=== PATIENT | male | born 1930 | race Caucasian/White ===

== ENCOUNTER 2018-04-04 23:37 | Inpatient (IN) ==
--- NOTE | 2018-04-05 00:04 | ED ---
HPI General Chief complaint: Neuro Symptoms/Deficit Stated complaint: Weakness Time Seen by Provider: 04/04/18 23:53 Source: patient and family Mode of arrival: EMS Limitations: no limitations History of Present Illness HPI narrative: 87-year-old male was brought to the emergency room by EMS as slurred speech. As per the ur coordinator the called 911 and told them that patient has been acting this way since approximately 8 PM. Patient says that he is having difficulty speaking. He is answering questions appropriately and is alert and oriented x3. His speech is comprehensible 75% extent. Baseline was unknown initially when I was examining him and talking to him. The time of onset was unclear as well. A stroke alert was called by me. The arrived 30 minutes after patient's arrival in the ER and upon speaking with her she clarified that she had noticed the symptoms slowly progressing from 6 PM onwards. This morning patient was noticed to have a rash in his groin area that was painful. It was more prominent on the right groin than the left and patient was having some difficulty walking because of the pain. When the speech progressively worsened that is when she called 911. Patient has history of Parkinson's. The also mentioned that she had noticed some drooling around his mouth. Currently patient does not have any droop. Onset (ago): hour(s) Related Data Home Medications Medication Instructions Recorded Confirmed buspirone 15 mg PO BID 04/05/18 04/05/18 carbidopa-levodopa 15 mg PO TID 04/05/18 04/05/18 carbidopa-levodopa 200 mg PO HS 04/05/18 04/05/18 metoprolol tartrate 25 mg PO DAILY 04/05/18 04/05/18 tramadol 50 mg PO Q4-6H PRN 04/05/18 04/05/18 trazodone 50 mg PO HS 04/05/18 04/05/18 Allergies Allergy/AdvReac Type Severity Reaction Status Date / Time No Known Allergies Allergy Verified 04/04/18 23:53 Review of Systems ROS: all other systems reviewed are negative Musculoskeletal Reports myalgias Integumentary/Breasts Reports rash PMFSH History History Provided By: Patient and Family Member () Medical History Medical History Hypertension (Acute) Pacemaker (Acute) Parkinson disease (Acute) Social History Social History Substance History: No History of Abuse Second Hand Smoke Exposure: No Smoking Status: Never smoker How Often Do You Have a Drink Containing Alcohol: Never Recent Travel in [facility] within the Last 8 Weeks: No Recent Out of Country Travel within the Last 8 Weeks: No Exam Narrative Exam Narrative: GENERAL: Awake, alert, elderly, mild to moderate distress SKIN: Focused skin assessment warm/dry. Erythematous, intertriginous rash on the groin area right worse than the left. It is wet in appearance and foul- smelling HEAD: Atraumatic. Normocephalic. EYES: Pupils equal and round. No scleral icterus. No injection or drainage. ENT: No nasal bleeding or discharge. Mucous membranes pink and moist. NECK: Trachea midline. No JVD. CARDIOVASCULAR: Regular rate and rhythm. No murmur appreciated. RESPIRATORY: No accessory muscle use. Clear to auscultation. Breath sounds equal bilaterally. GASTROINTESTINAL: Abdomen soft, non-tender, nondistended. Hepatic and splenic margins not palpable. MUSCULOSKELETAL: No obvious deformities. No clubbing. No cyanosis. No edema. NEUROLOGICAL: Awake and alert. No obvious cranial nerve deficits. Motor grossly within normal limits. Dysarthric speech. Patient is able to flex his right knee but unable to flex his hip due to pre-existing hip pain. Sensations intact bilaterally. NIH stroke score of 1 PSYCHIATRIC: Appropriate mood and affect; insight and judgment normal. Course Initial Documented Vital Signs Temperature 98.6 F 04/04/18 23:48 Pulse Rate 73 04/04/18 23:48 Respiratory Rate 16 04/04/18 23:48 Blood Pressure 139/67 04/04/18 23:48 Pulse Oximetry 97 04/04/18 23:48 Last Documented Vital Signs Temperature 98.7 F 04/08/18 08:00 Pulse Rate 79 04/08/18 08:00 Respiratory Rate 16 04/08/18 08:00 Blood Pressure 131/78 04/08/18 08:00 Pulse Oximetry 94 L 04/08/18 08:58 NIH Stroke Scale NIH Stroke Scale Level of Consciousness: 0-Alert Orientation Questions: 0-Answers both correct Responds to Commands: 0-Both tasks correct Gaze Eye Movement: 0-Horizontal movement WNL Visual Luis: 0-No visual field defect Facial Movement: 0-Normal Motor Functions Arm LEFT: 0-No drift Motor Functions Arm RIGHT: 0-No drift Motor Functions Leg LEFT: 0-No drift Motor Functions Leg RIGHT: 0-No drift Limb Ataxia: 0-No ataxia Sensory Loss: 0-No sensory loss Best Language: 0-Normal Articulation: 1-Mild dysarthia Extinction or Inattention Sensory: 0-Absent Total: 1 Medical Decision Making MDM Narrative Medical decision making narrative: 1:16 AM case was discussed with Dr. Mena soon after the stroke alert was called. Given the uncertainty of the timing at that point and minimal dysarthria the decision was made to withhold TPA. Test results are back and appeared to be within acceptable limit currently. CT of the neck is pending official read. Patient will require admission. I will give him a dose of aspirin full-strength. Awaiting for the hospitalist to call back. Medical Screen Exam Complete: Yes Emergency Medical Condition: Yes Lab Data Result diagrams: 04/05/18 00:15 04/08/18 06:49 Lab Results 04/05/18 04/05/18 04/05/18 Range/Units 00:10 00:15 00:15 WBC 8.5 (4.0-11.0) th/mm3 RBC 4.36 L (4.50-5.90) mil/mm3 Hgb 14.1 (13.0-17.0) gm/dL POC Hgb (Calc) 13.6 (13.0-17.0) g/dL Hct 42.2 (39.0-51.0) % POC Hct 40.0 (39-51.0) % MCV 96.9 (80.0-100.0) fL MCH 32.3 (27.0-34.0) pg MCHC 33.4 (32.0-36.0) % RDW 13.8 (11.6-17.2) % Plt Count 155 (150-450) th/mm3 MPV 9.1 (7.0-11.0) fL Neut % (Auto) 72.7 H (16.0-70.0) % Lymph % (Auto) 16.6 (9.0-44.0) % [place] % (Auto) 8.2 H (0.0-8.0) % Eos % (Auto) 1.8 (0.0-4.0) % Baso % (Auto) 0.7 (0.0-2.0) % Neut # (Auto) 6.2 (1.8-7.7) th/mm3 Lymph # (Auto) 1.4 (1.0-4.8) th/mm3 [place] # (Auto) 0.7 (0.0-0.9) th/mm3 Eos # (Auto) 0.2 (0.0-0.4) th/mm3 Baso # (Auto) 0.1 (0.0-0.2) th/mm3 WBC Differential . Differential Comment Auto diff final ESR (0-20) mm/hr PT (9.8-11.6) sec INR Ratio Fibrinogen (227-377) mg/dL POC Sodium 143 (137-144) mmol/L Sodium (136-145) meq/L POC Potassium 4.2 (3.6-5.0) mmol/L Potassium (3.5-5.1) meq/L POC Chloride 104 (102-111) mmol/L Chloride (98-107) meq/L Carbon Dioxide (21.0-32.0) meq/L Anion Gap (5-15) meq/L POC BUN 18 (5-21) mg/dL BUN (7-18) mg/dL Creatinine (0.60-1.30) mg/dL POC Creatinine 1.4 H (0.6-1.3) mg/dL Estimated GFR (>89) mL/min POC Glucose 106 (68-110) mg/dL Random Glucose (74-106) mg/dL Hemoglobin A1c (4.3-6.0) % Calcium (8.5-10.1) mg/dL Total Creatine Kinase (39-308) U/L Troponin I (0.02-0.05) ng/mL Triglycerides (42-150) mg/dL Cholesterol (120-200) mg/dL LDL Cholesterol, Calc (0-99) mg/dL HDL Cholesterol (40.0-60.0) mg/dL Cholesterol/HDL Ratio Ratio Vitamin B12 (193-986) pg/mL TSH (0.358-3.740) uIU/mL Free T4 (0.76-1.46) ng/dL Urine Color (Yellw/Straw) Urine Clarity (Clear) Urine pH (5.0-8.5) Ur Specific [place] (1.002-1.035) Urine Protein (Neg-Trace) mg/dL Urine Glucose (UA) (Negative) mg/dL Urine Ketones (Negative) mg/dL Urine Occult Blood (Negative) Urine Nitrate (Negative) Urine Bilirubin (Negative) Urine Urobilinogen (Less than 2) mg/dL Ur Leukocyte Esterase (Negative) Urine RBC (0-3) /hpf Urine WBC (0-5) /hpf Hyaline Casts (0-3) /lpf Urine Mucus (Occasional) /lpf Micro UA Comment Ur Microscopic Review Urine Culture Comments Urine Opiates Screen (Neg) Ur Barbiturates Screen (Neg) Phenytoin (10.0-20.0) mcg/mL Ur Amphetamines Screen (Neg) U Benzodiazepines Scrn (Neg) Urine Cocaine Screen (Neg) U Cannabinoids Screen (Neg) ZOË Screen (Neg) RPR (Nonreactive) Blood Type O Positive Blood Type Recheck Required Antibody Screen Negative 04/05/18 04/05/18 04/05/18 Range/Units 00:15 00:50 00:50 WBC (4.0-11.0) th/mm3 RBC (4.50-5.90) mil/mm3 Hgb (13.0-17.0) gm/dL POC Hgb (Calc) (13.0-17.0) g/dL Hct (39.0-51.0) % POC Hct (39-51.0) % MCV (80.0-100.0) fL MCH (27.0-34.0) pg MCHC (32.0-36.0) % RDW (11.6-17.2) % Plt Count (150-450) th/mm3 MPV (7.0-11.0) fL Neut % (Auto) (16.0-70.0) % Lymph % (Auto) (9.0-44.0) % [place] % (Auto) (0.0-8.0) % Eos % (Auto) (0.0-4.0) % Baso % (Auto) (0.0-2.0) % Neut # (Auto) (1.8-7.7) th/mm3 Lymph # (Auto) (1.0-4.8) th/mm3 [place] # (Auto) (0.0-0.9) th/mm3 Eos # (Auto) (0.0-0.4) th/mm3 Baso # (Auto) (0.0-0.2) th/mm3 WBC Differential Differential Comment ESR (0-20) mm/hr PT 10.6 (9.8-11.6) sec INR 1.0 Ratio Fibrinogen 346 (227-377) mg/dL POC Sodium (137-144) mmol/L Sodium (136-145) meq/L POC Potassium (3.6-5.0) mmol/L Potassium (3.5-5.1) meq/L POC Chloride (102-111) mmol/L Chloride (98-107) meq/L Carbon Dioxide (21.0-32.0) meq/L Anion Gap (5-15) meq/L POC BUN (5-21) mg/dL BUN (7-18) mg/dL Creatinine (0.60-1.30) mg/dL POC Creatinine (0.6-1.3) mg/dL Estimated GFR (>89) mL/min POC Glucose (68-110) mg/dL Random Glucose (74-106) mg/dL Hemoglobin A1c (4.3-6.0) % Calcium (8.5-10.1) mg/dL Total Creatine Kinase (39-308) U/L Troponin I (0.02-0.05) ng/mL Triglycerides (42-150) mg/dL Cholesterol (120-200) mg/dL LDL Cholesterol, Calc (0-99) mg/dL HDL Cholesterol (40.0-60.0) mg/dL Cholesterol/HDL Ratio Ratio Vitamin B12 (193-986) pg/mL TSH (0.358-3.740) uIU/mL Free T4 (0.76-1.46) ng/dL Urine Color Yellow (Yellw/Straw) Urine Clarity Clear (Clear) Urine pH 5.0 (5.0-8.5) Ur Specific [place] 1.029 (1.002-1.035) Urine Protein Negative (Neg-Trace) mg/dL Urine Glucose (UA) Negative (Negative) mg/dL Urine Ketones Trace H (Negative) mg/dL Urine Occult Blood Negative (Negative) Urine Nitrate Negative (Negative) Urine Bilirubin Negative (Negative) Urine Urobilinogen 4 or greater (Less than 2) mg/dL Ur Leukocyte Esterase Negative (Negative) Urine RBC 3 (0-3) /hpf Urine WBC 2 (0-5) /hpf Hyaline Casts 1 (0-3) /lpf Urine Mucus Moderate H (Occasional) /lpf Micro UA Comment Cath-culture not ind Ur Microscopic Review Not Reportable Urine Culture Comments Cath-cult not ind Urine Opiates Screen Neg (Neg) Ur Barbiturates Screen Neg (Neg) Phenytoin (10.0-20.0) mcg/mL Ur Amphetamines Screen Neg (Neg) U Benzodiazepines Scrn Neg (Neg) Urine Cocaine Screen Neg (Neg) U Cannabinoids Screen Neg (Neg) ZOË Screen (Neg) RPR (Nonreactive) Blood Type Blood Type Recheck Antibody Screen 04/05/18 04/05/18 04/05/18 Range/Units 11:42 11:42 11:42 WBC (4.0-11.0) th/mm3 RBC (4.50-5.90) mil/mm3 Hgb (13.0-17.0) gm/dL POC Hgb (Calc) (13.0-17.0) g/dL Hct (39.0-51.0) % POC Hct (39-51.0) % MCV (80.0-100.0) fL MCH (27.0-34.0) pg MCHC (32.0-36.0) % RDW (11.6-17.2) % Plt Count (150-450) th/mm3 MPV (7.0-11.0) fL Neut % (Auto) (16.0-70.0) % Lymph % (Auto) (9.0-44.0) % [place] % (Auto) (0.0-8.0) % Eos % (Auto) (0.0-4.0) % Baso % (Auto) (0.0-2.0) % Neut # (Auto) (1.8-7.7) th/mm3 Lymph # (Auto) (1.0-4.8) th/mm3 [place] # (Auto) (0.0-0.9) th/mm3 Eos # (Auto) (0.0-0.4) th/mm3 Baso # (Auto) (0.0-0.2) th/mm3 WBC Differential Differential Comment ESR 17 (0-20) mm/hr PT (9.8-11.6) sec INR Ratio Fibrinogen (227-377) mg/dL POC Sodium (137-144) mmol/L Sodium (136-145) meq/L POC Potassium (3.6-5.0) mmol/L Potassium (3.5-5.1) meq/L POC Chloride (102-111) mmol/L Chloride (98-107) meq/L Carbon Dioxide (21.0-32.0) meq/L Anion Gap (5-15) meq/L POC BUN (5-21) mg/dL BUN (7-18) mg/dL Creatinine (0.60-1.30) mg/dL POC Creatinine (0.6-1.3) mg/dL Estimated GFR (>89) mL/min POC Glucose (68-110) mg/dL Random Glucose (74-106) mg/dL Hemoglobin A1c (4.3-6.0) % Calcium (8.5-10.1) mg/dL Total Creatine Kinase (39-308) U/L Troponin I (0.02-0.05) ng/mL Triglycerides (42-150) mg/dL Cholesterol (120-200) mg/dL LDL Cholesterol, Calc (0-99) mg/dL HDL Cholesterol (40.0-60.0) mg/dL Cholesterol/HDL Ratio Ratio Vitamin B12 193 (193-986) pg/mL TSH 1.280 (0.358-3.740) uIU/mL Free T4 1.31 (0.76-1.46) ng/dL Urine Color (Yellw/Straw) Urine Clarity (Clear) Urine pH (5.0-8.5) Ur Specific [place] (1.002-1.035) Urine Protein (Neg-Trace) mg/dL Urine Glucose (UA) (Negative) mg/dL Urine Ketones (Negative) mg/dL Urine Occult Blood (Negative) Urine Nitrate (Negative) Urine Bilirubin (Negative) Urine Urobilinogen (Less than 2) mg/dL Ur Leukocyte Esterase (Negative) Urine RBC (0-3) /hpf Urine WBC (0-5) /hpf Hyaline Casts (0-3) /lpf Urine Mucus (Occasional) /lpf Micro UA Comment Ur Microscopic Review Urine Culture Comments Urine Opiates Screen (Neg) Ur Barbiturates Screen (Neg) Phenytoin (10.0-20.0) mcg/mL Ur Amphetamines Screen (Neg) U Benzodiazepines Scrn (Neg) Urine Cocaine Screen (Neg) U Cannabinoids Screen (Neg) ZOË Screen Neg (Neg) RPR Nonreactive (Nonreactive) Blood Type Blood Type Recheck Antibody Screen 04/05/18 04/05/18 04/06/18 Range/Units 17:29 20:58 07:09 WBC (4.0-11.0) th/mm3 RBC (4.50-5.90) mil/mm3 Hgb (13.0-17.0) gm/dL POC Hgb (Calc) (13.0-17.0) g/dL Hct (39.0-51.0) % POC Hct (39-51.0) % MCV (80.0-100.0) fL MCH (27.0-34.0) pg MCHC (32.0-36.0) % RDW (11.6-17.2) % Plt Count (150-450) th/mm3 MPV (7.0-11.0) fL Neut % (Auto) (16.0-70.0) % Lymph % (Auto) (9.0-44.0) % [place] % (Auto) (0.0-8.0) % Eos % (Auto) (0.0-4.0) % Baso % (Auto) (0.0-2.0) % Neut # (Auto) (1.8-7.7) th/mm3 Lymph # (Auto) (1.0-4.8) th/mm3 [place] # (Auto) (0.0-0.9) th/mm3 Eos # (Auto) (0.0-0.4) th/mm3 Baso # (Auto) (0.0-0.2) th/mm3 WBC Differential Differential Comment ESR (0-20) mm/hr PT (9.8-11.6) sec INR Ratio Fibrinogen (227-377) mg/dL POC Sodium (137-144) mmol/L Sodium (136-145) meq/L POC Potassium (3.6-5.0) mmol/L Potassium (3.5-5.1) meq/L POC Chloride (102-111) mmol/L Chloride (98-107) meq/L Carbon Dioxide (21.0-32.0) meq/L Anion Gap (5-15) meq/L POC BUN (5-21) mg/dL BUN (7-18) mg/dL Creatinine (0.60-1.30) mg/dL POC Creatinine (0.6-1.3) mg/dL Estimated GFR (>89) mL/min POC Glucose 114 H 95 (68-110) mg/dL Random Glucose (74-106) mg/dL Hemoglobin A1c 5.6 (4.3-6.0) % Calcium (8.5-10.1) mg/dL Total Creatine Kinase (39-308) U/L Troponin I (0.02-0.05) ng/mL Triglycerides (42-150) mg/dL Cholesterol (120-200) mg/dL LDL Cholesterol, Calc (0-99) mg/dL HDL Cholesterol (40.0-60.0) mg/dL Cholesterol/HDL Ratio Ratio Vitamin B12 (193-986) pg/mL TSH (0.358-3.740) uIU/mL Free T4 (0.76-1.46) ng/dL Urine Color (Yellw/Straw) Urine Clarity (Clear) Urine pH (5.0-8.5) Ur Specific [place] (1.002-1.035) Urine Protein (Neg-Trace) mg/dL Urine Glucose (UA) (Negative) mg/dL Urine Ketones (Negative) mg/dL Urine Occult Blood (Negative) Urine Nitrate (Negative) Urine Bilirubin (Negative) Urine Urobilinogen (Less than 2) mg/dL Ur Leukocyte Esterase (Negative) Urine RBC (0-3) /hpf Urine WBC (0-5) /hpf Hyaline Casts (0-3) /lpf Urine Mucus (Occasional) /lpf Micro UA Comment Ur Microscopic Review Urine Culture Comments Urine Opiates Screen (Neg) Ur Barbiturates Screen (Neg) Phenytoin (10.0-20.0) mcg/mL Ur Amphetamines Screen (Neg) U Benzodiazepines Scrn (Neg) Urine Cocaine Screen (Neg) U Cannabinoids Screen (Neg) ZOË Screen (Neg) RPR (Nonreactive) Blood Type Blood Type Recheck Antibody Screen 04/06/18 04/06/18 04/06/18 Range/Units 07:09 08:18 12:37 WBC (4.0-11.0) th/mm3 RBC (4.50-5.90) mil/mm3 Hgb (13.0-17.0) gm/dL POC Hgb (Calc) (13.0-17.0) g/dL Hct (39.0-51.0) % POC Hct (39-51.0) % MCV (80.0-100.0) fL MCH (27.0-34.0) pg MCHC (32.0-36.0) % RDW (11.6-17.2) % Plt Count (150-450) th/mm3 MPV (7.0-11.0) fL Neut % (Auto) (16.0-70.0) % Lymph % (Auto) (9.0-44.0) % [place] % (Auto) (0.0-8.0) % Eos % (Auto) (0.0-4.0) % Baso % (Auto) (0.0-2.0) % Neut # (Auto) (1.8-7.7) th/mm3 Lymph # (Auto) (1.0-4.8) th/mm3 [place] # (Auto) (0.0-0.9) th/mm3 Eos # (Auto) (0.0-0.4) th/mm3 Baso # (Auto) (0.0-0.2) th/mm3 WBC Differential Differential Comment ESR (0-20) mm/hr PT (9.8-11.6) sec INR Ratio Fibrinogen (227-377) mg/dL POC Sodium (137-144) mmol/L Sodium (136-145) meq/L POC Potassium (3.6-5.0) mmol/L Potassium (3.5-5.1) meq/L POC Chloride (102-111) mmol/L Chloride (98-107) meq/L Carbon Dioxide (21.0-32.0) meq/L Anion Gap (5-15) meq/L POC BUN (5-21) mg/dL BUN (7-18) mg/dL Creatinine (0.60-1.30) mg/dL POC Creatinine (0.6-1.3) mg/dL Estimated GFR (>89) mL/min POC Glucose 88 104 (68-110) mg/dL Random Glucose (74-106) mg/dL Hemoglobin A1c (4.3-6.0) % Calcium (8.5-10.1) mg/dL Total Creatine Kinase 91 (39-308) U/L Troponin I (0.02-0.05) ng/mL Triglycerides 89 (42-150) mg/dL Cholesterol 96 L (120-200) mg/dL LDL Cholesterol, Calc 48 (0-99) mg/dL HDL Cholesterol 29.9 L (40.0-60.0) mg/dL Cholesterol/HDL Ratio 3.21 Ratio Vitamin B12 (193-986) pg/mL TSH (0.358-3.740) uIU/mL Free T4 (0.76-1.46) ng/dL Urine Color (Yellw/Straw) Urine Clarity (Clear) Urine pH (5.0-8.5) Ur Specific [place] (1.002-1.035) Urine Protein (Neg-Trace) mg/dL Urine Glucose (UA) (Negative) mg/dL Urine Ketones (Negative) mg/dL Urine Occult Blood (Negative) Urine Nitrate (Negative) Urine Bilirubin (Negative) Urine Urobilinogen (Less than 2) mg/dL Ur Leukocyte Esterase (Negative) Urine RBC (0-3) /hpf Urine WBC (0-5) /hpf Hyaline Casts (0-3) /lpf Urine Mucus (Occasional) /lpf Micro UA Comment Ur Microscopic Review Urine Culture Comments Urine Opiates Screen (Neg) Ur Barbiturates Screen (Neg) Phenytoin Less than 0.4 L (10.0-20.0) mcg/mL Ur Amphetamines Screen (Neg) U Benzodiazepines Scrn (Neg) Urine Cocaine Screen (Neg) U Cannabinoids Screen (Neg) ZOË Screen (Neg) RPR (Nonreactive) Blood Type Blood Type Recheck Antibody Screen 04/06/18 04/08/18 Range/Units 21:05 06:49 WBC (4.0-11.0) th/mm3 RBC (4.50-5.90) mil/mm3 Hgb (13.0-17.0) gm/dL POC Hgb (Calc) (13.0-17.0) g/dL Hct (39.0-51.0) % POC Hct (39-51.0) % MCV (80.0-100.0) fL MCH (27.0-34.0) pg MCHC (32.0-36.0) % RDW (11.6-17.2) % Plt Count (150-450) th/mm3 MPV (7.0-11.0) fL Neut % (Auto) (16.0-70.0) % Lymph % (Auto) (9.0-44.0) % [place] % (Auto) (0.0-8.0) % Eos % (Auto) (0.0-4.0) % Baso % (Auto) (0.0-2.0) % Neut # (Auto) (1.8-7.7) th/mm3 Lymph # (Auto) (1.0-4.8) th/mm3 [place] # (Auto) (0.0-0.9) th/mm3 Eos # (Auto) (0.0-0.4) th/mm3 Baso # (Auto) (0.0-0.2) th/mm3 WBC Differential Differential Comment ESR (0-20) mm/hr PT (9.8-11.6) sec INR Ratio Fibrinogen (227-377) mg/dL POC Sodium (137-144) mmol/L Sodium 142 (136-145) meq/L POC Potassium (3.6-5.0) mmol/L Potassium 4.0 (3.5-5.1) meq/L POC Chloride (102-111) mmol/L Chloride 107 (98-107) meq/L Carbon Dioxide 26.6 (21.0-32.0) meq/L Anion Gap 8 (5-15) meq/L POC BUN (5-21) mg/dL BUN 16 (7-18) mg/dL Creatinine 1.45 H (0.60-1.30) mg/dL POC Creatinine (0.6-1.3) mg/dL Estimated GFR 46 L (>89) mL/min POC Glucose (68-110) mg/dL Random Glucose 107 H (74-106) mg/dL Hemoglobin A1c (4.3-6.0) % Calcium 8.5 (8.5-10.1) mg/dL Total Creatine Kinase (39-308) U/L Troponin I Less than 0.02 L (0.02-0.05) ng/mL Triglycerides (42-150) mg/dL Cholesterol (120-200) mg/dL LDL Cholesterol, Calc (0-99) mg/dL HDL Cholesterol (40.0-60.0) mg/dL Cholesterol/HDL Ratio Ratio Vitamin B12 (193-986) pg/mL TSH (0.358-3.740) uIU/mL Free T4 (0.76-1.46) ng/dL Urine Color (Yellw/Straw) Urine Clarity (Clear) Urine pH (5.0-8.5) Ur Specific [place] (1.002-1.035) Urine Protein (Neg-Trace) mg/dL Urine Glucose (UA) (Negative) mg/dL Urine Ketones (Negative) mg/dL Urine Occult Blood (Negative) Urine Nitrate (Negative) Urine Bilirubin (Negative) Urine Urobilinogen (Less than 2) mg/dL Ur Leukocyte Esterase (Negative) Urine RBC (0-3) /hpf Urine WBC (0-5) /hpf Hyaline Casts (0-3) /lpf Urine Mucus (Occasional) /lpf Micro UA Comment Ur Microscopic Review Urine Culture Comments Urine Opiates Screen (Neg) Ur Barbiturates Screen (Neg) Phenytoin (10.0-20.0) mcg/mL Ur Amphetamines Screen (Neg) U Benzodiazepines Scrn (Neg) Urine Cocaine Screen (Neg) U Cannabinoids Screen (Neg) ZOË Screen (Neg) RPR (Nonreactive) Blood Type Blood Type Recheck Antibody Screen Imaging Data Radiologist's impression: Chest X-Ray 04/05/18 00:06 CONCLUSION: Interstitial prominence right upper lung and left lower lung may represent developing infiltrate. Head CT 04/05/18 00:06 CONCLUSION: 1. No acute findings in the brain. 2. Moderate severity atrophy. The report was called to Dr. Samuel at 12:29 AM. Head CTA 04/05/18 00:06 CONCLUSION: 1. Negative exam. No evidence of vessel truncation. Neck CTA 04/05/18 00:06 CONCLUSION: 1. Negative exam. No significant stenosis seen. CT CAD 04/05/18 00:15 CONCLUSION: Physiological brain perfusion parameters with RAPID analysis as above. The decision for consideration of therapy is multi factorial and multi disciplinary relying on subjective and objective clinical data. This data is not construed or intended to be the sole determinant of treatment eligibility. Hip X-Ray 04/06/18 00:00 CONCLUSION: Right hip arthroplasty. No fracture or complication ECG Data Attestation: I personally reviewed and interpreted this ECG as follows: Interpretation: Twelve-lead EKG was reviewed by me. Paced rhythm. Heart rate of 73 bpm per Discharge Plan Discharge Disposition Patient Disposition: 30 Still Patient Physicians Team ED Provider: Jayne Samuel Attending Provider: Yi Grace Other Providers: Jonah Mena ; Festus Munoz ; Chica Hurt ; [employer], [employer] Status ED Status: Left Department Discharge Information Discharge Date/Time: 04/05/18 04:51
--- NOTE | 2018-04-05 00:33 | CT ---
EXAM DATE: 04/05/2018 12:24 AM EDT AGE/SEX: 87 years / Male INDICATIONS: Stroke alert; slurred speech. CLINICAL DATA: This is the patient's initial encounter. Patient reports that signs and symptoms have been present for 1 day and indicates a pain score of Nonresponsive. MEDICAL/SURGICAL HISTORY: Hypertension. Parkinson's disease. Pacemaker. RADIATION DOSE: 52.13 CTDI (mGy) COMPARISON: No prior exams available for comparison. TECHNIQUE: CT of the head without contrast. Using automated exposure control and adjustment of the mA and/or kV according to patient size, radiation dose was kept as low as reasonably achievable to ob tain optimal diagnostic quality images. DICOM format image data is available electronically for revi ew and comparison. FINDINGS: Cerebrum: The ventricles, sulci, and basal cisterns are prominent and there is diffuse decreased att enuation in the supratentorial white matter characteristic of diffuse ischemic change. Physiologic ca lcification in the basal ganglia.. No evidence of midline shift, mass lesion, hemorrhage or acute in farction. No extraaxial fluid collections are seen. Posterior Fossa: The cerebellum and brainstem are intact. The 4th ventricle is midline. The cerebe llopontine angle is unremarkable. Extracranial: The visualized portion of the orbits is intact. Mild mucosal thickening in the right m axillary sinus. Skull: The calvaria is intact. No evidence of skull fracture. CONCLUSION: 1. No acute findings in the brain. 2. Moderate severity atrophy. The report was called to Dr. Samuel at 12:29 AM. Electronically signed by: Vahid Bender MD 04/05/2018 12:32 AM EDT
--- NOTE | 2018-04-05 00:35 | CT ---
EXAM DATE: 04/05/2018 12:32 AM EDT AGE/SEX: 87 years / Male INDICATIONS: Stroke alert; slurred speech. CLINICAL DATA: This is the patient's initial encounter. Patient reports that signs and symptoms have been present for 1 day and indicates a pain score of Nonresponsive. MEDICAL/SURGICAL HISTORY: Hypertension. Parkinson's disease. Pacemaker. RADIATION DOSE: 270 CTDI (mGy) COMPARISON: [facility] [place] W/O CONTRAST, 04/05/2018. . TECHNIQUE: CT of the head after intravenous administration of 40 ml Visipaque 320 (iodixanol) nonio nicol water-soluble contrast as a single exam dose. Using automated exposure control and adjustment of the mA and/or kV according to patient size, radiation dose was kept as low as reasonably achievable to obtain optimal diagnostic quality images. DICOM format image data is available electronically for review and comparison. FINDINGS: 1. CBF (<30%) Volume (ml): 0ml 2. Perfusion (Tmax>6.0s) Volume (ml): 0ml 3. Mismatch Volume (ml) (Tmax>6.0 - CBF): none CONCLUSION: Physiological brain perfusion parameters with RAPID analysis as above. The decision for consideration of therapy is multi factorial and multi disciplinary relying on subjec tive and objective clinical data. This data is not construed or intended to be the sole determinant of treatment eligibility. Electronically signed by: Vahid Bender MD 04/05/2018 12:34 AM EDT
[2018-04-05 00:38] LABS: Baso # (Auto) 0.1 th/mm3 (0.0-0.2); Baso % (Auto) 0.7 % (0.0-2.0); Eos # (Auto) 0.2 th/mm3 (0.0-0.4); Eos % (Auto) 1.8 % (0.0-4.0); Hematocrit 42.2 % (39.0-51.0); Hemoglobin 14.1 gm/dL (13.0-17.0); Lymph # (Auto) 1.4 th/mm3 (1.0-4.8); Lymph % (Auto) 16.6 % (9.0-44.0); Mean Corpuscular HGB Conc 33.4 % (32.0-36.0); Mean Corpuscular Hemoglobin 32.3 pg (27.0-34.0); Mean Corpuscular Volume 96.9 fL (80.0-100.0); Mean Platelet Volume 9.1 fL (7.0-11.0); Mono # (Auto) 0.7 th/mm3 (0.0-0.9); Mono % (Auto) 8.2 % (0.0-8.0); Neut # (Auto) 6.2 th/mm3 (1.8-7.7); Neut % (Auto) 72.7 % (16.0-70.0); Platelet Count 155 th/mm3 (150-450); Red Blood Count 4.36 mil/mm3 (4.50-5.90); Red Cell Distribution Width 13.8 % (11.6-17.2); White Blood Count 8.5 th/mm3 (4.0-11.0)
--- NOTE | 2018-04-05 00:47 | CT ---
EXAM DATE: 04/05/2018 12:39 AM EDT AGE/SEX: 87 years / Male INDICATIONS: Stroke alert; slurred speech. CLINICAL DATA: This is the patient's initial encounter. Patient reports that signs and symptoms have been present for 1 day and indicates a pain score of Nonresponsive. MEDICAL/SURGICAL HISTORY: Hypertension. Parkinson's disease. Pacemaker. RADIATION DOSE: 10.23 CTDI (mGy) ; Combined studies COMPARISON: [facility] [place], CT HEAD W/O CONTRAST, 04/05/2018. [facility] [place], CT CEREBRAL PERF W CONTRAST W 3D, 03/11. . TECHNIQUE: Volumetric scanning was performed using a multi-row detector CT scanner during bolus infu zulma of 60 ml Visipaque 320 (iodixanol) nonionic water-soluble contrast as a cumulative dose for mul tiple exams. The data was post processed with a variety of visualization algorithms including full volume maximum intensity projection, multi-planar sliding thin slab reformation, curved planar reform ation, and surface rendering techniques. Using automated exposure control and adjustment of the mA a nd/or kV according to patient size, radiation dose was kept as low as reasonably achievable to obtain optimal diagnostic quality images. DICOM format image data is available electronically for review a nd comparison. FINDINGS: There is excellent visualization of the major intracranial arteries out to the second-order branch ve ssels. There is no evidence for aneurysm, vessel truncation or stenosis, and no evidence for vascula r malformation. No flow seen in the anterior communicating artery. The right posterior cerebral arter y arises from the anterior circulation. CONCLUSION: 1. Negative exam. No evidence of vessel truncation. Electronically signed by: Vahid Bender MD 04/05/2018 12:46 AM EDT
[2018-04-05] MEDS: Sod Chloride 0.9% Inj 1,000 ML IV.CONT SCH ×2 (00:49→17:03)
--- NOTE | 2018-04-05 00:51 | XR ---
EXAM DATE: 04/05/2018 12:41 AM EDT AGE/SEX: 87 years / Male INDICATIONS: Stroke alert. CLINICAL DATA: This is the patient's initial encounter. Patient reports that signs and symptoms have been present for 1 day and indicates a pain score of 0/10. MEDICAL/SURGICAL HISTORY: Parkinson's disease. Hypertension. Pacemaker. COMPARISON: [facility] [place], CHEST SINGLE AP, 08/25/2014. [facility] [place], CHEST PA & LAT, 11/27/2011. . FINDINGS: There is a submaximal inspiration with some crowding of the bronchopulmonary markings centrally. Inte rstitial prominence in the right upper lung and left lower lung may represent nonconsolidative inters titial infiltrate. The heart is normal size. Cardiac pacer with 2 leads. Moderate tortuosity descendi ng thoracic aorta. Both hemidiaphragms are well delineated. CONCLUSION: Interstitial prominence right upper lung and left lower lung may represent developing infiltrate. Electronically signed by: Vahid Bender MD 04/05/2018 12:49 AM EDT
[2018-04-05 00:53] LABS: Prothrombin Time 10.6 sec (9.8-11.6)
[2018-04-05 00:57] LABS: Bilirubin,Urine Negative (Negative); Clarity,Urine Clear (Clear); Color,Urine Yellow (Yellw/Straw); Glucose,Urine (UA) Negative (Negative); Hyaline Casts,Urine 1 /lpf (0-3); Leukocyte Esterase,Urine Negative (Negative); Mucus,Urine Moderate /lpf (Occasional); Nitrite,Urine Negative (Negative); Specific Gravity,Urine 1.029 (1.002-1.035); Urobilinogen,Urine 4 or Greater mg/dL (Less than 2)
[2018-04-05] MEDS ORDERED: Acetaminophen 325 MG Tablet PO ONE (00:58)
[2018-04-05] MEDS ORDERED: Sodium Chlor 0.9% Inj 500 ML IV.SIG SCH (01:00)
[2018-04-05 01:03] LABS: Amphetamine Screen,Urine Neg (Neg); Barbiturate Screen,Urine Neg (Neg); Cannabinoid Screen,Urine Neg (Neg); Cocaine Screen,Urine Neg (Neg)
[2018-04-05 01:06] LABS: Opiate Screen,Urine Neg (Neg)
[2018-04-05] MEDS ORDERED: Aspirin 325 MG Tablet PO ONE (01:17)
--- NOTE | 2018-04-05 01:32 | CT ---
EXAM DATE: 04/05/2018 1:10 AM EDT AGE/SEX: 87 years / Male INDICATIONS: Stroke alert; slurred speech. CLINICAL DATA: This is the patient's initial encounter. Patient reports that signs and symptoms have been present for 1 day and indicates a pain score of Nonresponsive. MEDICAL/SURGICAL HISTORY: Hypertension. Parkinson's disease. Pacemaker. RADIATION DOSE: 10.23 CTDI (mGy) COMPARISON: No prior exams available for comparison. TECHNIQUE: Volumetric scanning was performed using a multirow detector CT scanner during bolus infus ion of 60 ml Omnipaque 350 (iohexol) nonionic water-soluble contrast as a cumulative dose for multip le exams. The data was postprocessed with a variety of visualization algorithms including full-volu me maximum intensity projection, multiplanar sliding thin-slab reformation, curved-planar reformation , and surface-rendering techniques. Using automated exposure control and adjustment of the mA and/or kV according to patient size, radiation dose was kept as low as reasonably achievable to obtain opti mal diagnostic quality images. DICOM format image data is available electronically for review and co mparison. FINDINGS: Aortic Arch: There is a three-vessel origin of the great vessels from the aorta. No evidence of ost ial narrowing Right Carotid: The common carotid artery is intact. The carotid bulb has a normal configuration wit hout ulceration or narrowing. Mild wall calcification in the proximal internal carotid artery without luminal narrowing. The internal carotid artery lumen is smooth without stenosis. The external carot id artery is intact. Left Carotid: The common carotid artery is intact. The carotid bulb has a normal configuration with out ulceration or narrowing. Moderate wall calcification in the proximal internal carotid artery wit hout luminal narrowing. The internal carotid artery lumen is smooth without stenosis. The external c arotid artery is intact. Vertebrals: The vertebral arteries have a symmetric diameter. No stenotic lesions are seen. Percent stenosis is calculated using the diameter of the stenotic region over the diameter of the nor mal distal internal carotid artery. CONCLUSION: 1. Negative exam. No significant stenosis seen. Electronically signed by: Vahid Bender MD 04/05/2018 1:30 AM EDT
[2018-04-05] MEDS ORDERED: Dextrose 50% in Water 50 ML Vial IV.PUSH PRN (01:39)
--- NOTE | 2018-04-05 11:35 | P.HP ---
History of Present Illness Service: Hospitalist Primary Care Physician: Srini Spain Chief Complaint: Slurred speech History of Present Illness: Mr. Morrissey is a pleasant 87-year-old male with a history of Parkinson's disease, hypertension, pacemaker placement who was brought to the hospital due to slurred speech. Patient cannot provide much history at the time of this interview. Per chart review, patient's noticed changes in patient's speech changes around 6 PM on 04/04/2018. He also had difficulty walking because of right-sided groin area pain. Patient did not have any chest pain, shortness of breath, fever or chills. No changes in bowel or bladder habits. Past medical history: Hypertension, Parkinson's disease, pacemaker placement Past surgical history: Patient could not tell me any major surgeries in the past. Social history: He denies using tobacco or alcohol. Family history: Father had stroke. Inpatient Certification: I certify that the inpatient services were ordered in accordance with Medicare regulations governing the order. This includes certification that hospital inpatient services are reasonable and necessary and in the case of services not specified as inpatient-only under 42 CFR 419.22(n), that they are appropriately provided as inpatient services in accordance to with the 2-midnight benchmark under 43 CFR 412.3(e) Estimated Total Length of Stay (Days): 3 Plans for Post Hospital Care: Not yet determined Review of Systems All other systems reviewed negative except as stated in HPI, unobtainable due to mental status PMFSH - History History Provided By: Patient - Medical History Medical History: Medical History (Last Reviewed 04/05/18 @ 13:47 by Bob Pedraza) Chronic pain Hypertension Pacemaker Parkinson disease - Surgical History Surgical History: Surgical History (Last Reviewed 04/05/18 @ 13:47 by Bob Pedraza) History of permanent cardiac pacemaker placement History of total right hip replacement Hx of cardiac cath Hx of joint replacement - Tobacco History Second Hand Smoke Exposure: No Smoking Status: Never smoker - Alcohol History How Often Do You Have a Drink Containing Alcohol: Never - Substance Use History Substance History: No History of Abuse - Travel History Recent Travel in the [place] Within the Last 8 Weeks: No Recent Travel Out of the Country Within the Last 8 Weeks: No - Immunization History Tetanus Immunization: Unable to Assess Hx Influenza Vaccine This Season: Yes Medications and Allergies Active Medications: Active Medications Aspirin (Aspirin Chew) 81 mg PO DAILY KATELYN Carbidopa/Levodopa (Sinemet Cr 50/200 Mg) 1 tab PO TID [facility] Dextrose (D50w Vial) 50 ml IV.PUSH UNSCH PRN PRN Reason: PER HYPOGLYCEMIA PROTOCOL Glucagon (Glucagon Inj) 1 mg OTHER UNSCH PRN PRN Reason: for Hypoglycemia Protocol Sodium Chloride (Ns Inj) 1,000 mls @ 70 mls/hr IV.CONT .[id number] KATELYN Last Admin: 04/05/18 00:49 Dose: 70 mls/hr Sodium Chloride (Ns Flush) 2 ml IV.FLUSH BID KATELYN Sodium Chloride (Ns Flush) 2 ml IV.FLUSH PRN PRN PRN Reason: FLUSH AFTER USING IV ACCESS Tramadol HCl (Ultram) 50 mg PO Q8H PRN PRN Reason: pain 1 to 10 Last Admin: 04/05/18 06:39 Dose: 50 mg Allergies Allergy/AdvReac Type Severity Reaction Status Date / Time No Known Allergies Allergy Verified 04/04/18 23:53 Home Medications Medication Instructions Recorded Confirmed Type buspirone 15 mg PO BID 04/05/18 04/05/18 History carbidopa-levodopa 15 mg PO TID 04/05/18 04/05/18 History carbidopa-levodopa 200 mg PO HS 04/05/18 04/05/18 History metoprolol tartrate 25 mg PO DAILY 04/05/18 04/05/18 History tramadol 50 mg PO Q4-6H PRN 04/05/18 04/05/18 History trazodone 50 mg PO HS 04/05/18 04/05/18 History Exam Vital signs: Vital Signs 04/04/18 23:48 04/04/18 23:53 04/05/18 00:18 Temperature 98.6 F 98.6 F Pulse Rate 73 93 H 76 Respiratory Rate 16 16 16 Blood Pressure 139/67 139/76 143/79 H Pulse Oximetry 97 97 100 04/05/18 00:19 04/05/18 00:28 04/05/18 04:00 Temperature 97.9 F Pulse Rate 109 H 71 Respiratory Rate 18 16 Blood Pressure 158/83 H 166/73 H Pulse Oximetry 100 100 98 04/05/18 08:00 Temperature 98.2 F Pulse Rate 75 Respiratory Rate 16 Blood Pressure 144/70 H Pulse Oximetry 95 Intake & Output 10/04/05/18 04/05/18 18:59 06:59 18:59 Intake Total 500 / 500 Balance 500 / 500 Weight 92.6 kg 92.6 kg Intake: IV 500 / 500 NS Inj 500 ML @ Wide Open IV. 500 / 500 SIG BOLUS KATELYN Rx#:[id number] Other: # Incontinent Voids 1 Date of Last Bowel Movement 04/04/18 Weight On Admission 177.8 kg Narrative: GENERAL: This is a well-nourished, well-developed patient, in no apparent distress. SKIN: No rashes, ecchymoses or lesions. Warm and dry. HEAD: Atraumatic. Normocephalic. No temporal or scalp tenderness. EYES: Pupils equal round and reactive. No injection or drainage. ENT: Nose without bleeding, purulent drainage or septal hematoma. Airway patent. NECK: Trachea midline. No lymphadenopathy. Supple, nontender, no meningeal signs. CARDIOVASCULAR: Regular rate and rhythm without murmurs, gallops, or rubs. No JVD. RESPIRATORY: Clear to auscultation. Breath sounds equal bilaterally. No wheezes , rales, or rhonchi. GASTROINTESTINAL: Abdomen soft, non-tender, nondistended. No guarding. MUSCULOSKELETAL: Extremities without clubbing, cyanosis, or edema. NEUROLOGICAL: Awake and alert. Cranial nerves II through XII intact. Right upper extremity slow movement noted. Speech appears to be somewhat slow. Results - Labs CBC & Chem 7: 04/05/18 00:15 Labs: Laboratory Results - last 24 hr 04/05/18 04/05/18 04/05/18 00:10 00:15 00:15 WBC 8.5 RBC 4.36 L Hgb 14.1 POC Hgb (Calc) 13.6 Hct 42.2 POC Hct 40.0 MCV 96.9 MCH 32.3 MCHC 33.4 RDW 13.8 Plt Count 155 MPV 9.1 Neut % (Auto) 72.7 H Lymph % (Auto) 16.6 [place] % (Auto) 8.2 H Eos % (Auto) 1.8 Baso % (Auto) 0.7 Neut # (Auto) 6.2 Lymph # (Auto) 1.4 [place] # (Auto) 0.7 Eos # (Auto) 0.2 Baso # (Auto) 0.1 WBC Differential . Differential Comment Auto diff final PT INR Fibrinogen POC Sodium 143 POC Potassium 4.2 POC Chloride 104 POC BUN 18 POC Creatinine 1.4 H POC Glucose 106 Urine Color Urine Clarity Urine pH Ur Specific [place] Urine Protein Urine Glucose (UA) Urine Ketones Urine Occult Blood Urine Nitrate Urine Bilirubin Urine Urobilinogen Ur Leukocyte Esterase Urine RBC Urine WBC Hyaline Casts Urine Mucus Micro UA Comment Ur Microscopic Review Urine Culture Comments Urine Opiates Screen Ur Barbiturates Screen Ur Amphetamines Screen U Benzodiazepines Scrn Urine Cocaine Screen U Cannabinoids Screen Blood Type O Positive Blood Type Recheck Required Antibody Screen Negative 04/05/18 04/05/18 04/05/18 00:15 00:50 00:50 WBC RBC Hgb POC Hgb (Calc) Hct POC Hct MCV MCH MCHC RDW Plt Count MPV Neut % (Auto) Lymph % (Auto) [place] % (Auto) Eos % (Auto) Baso % (Auto) Neut # (Auto) Lymph # (Auto) [place] # (Auto) Eos # (Auto) Baso # (Auto) WBC Differential Differential Comment PT 10.6 INR 1.0 Fibrinogen 346 POC Sodium POC Potassium POC Chloride POC BUN POC Creatinine POC Glucose Urine Color Yellow Urine Clarity Clear Urine pH 5.0 Ur Specific [place] 1.029 Urine Protein Negative Urine Glucose (UA) Negative Urine Ketones Trace H Urine Occult Blood Negative Urine Nitrate Negative Urine Bilirubin Negative Urine Urobilinogen 4 or greater Ur Leukocyte Esterase Negative Urine RBC 3 Urine WBC 2 Hyaline Casts 1 Urine Mucus Moderate H Micro UA Comment Cath-culture not ind Ur Microscopic Review Not Reportable Urine Culture Comments Cath-cult not ind Urine Opiates Screen Neg Ur Barbiturates Screen Neg Ur Amphetamines Screen Neg U Benzodiazepines Scrn Neg Urine Cocaine Screen Neg U Cannabinoids Screen Neg Blood Type Blood Type Recheck Antibody Screen - Imaging Impressions Chest X-Ray 04/05/18 00:06 CONCLUSION: Interstitial prominence right upper lung and left lower lung may represent developing infiltrate. Head CT 04/05/18 00:06 CONCLUSION: 1. No acute findings in the brain. 2. Moderate severity atrophy. The report was called to Dr. Samuel at 12:29 AM. Head CTA 04/05/18 00:06 CONCLUSION: 1. Negative exam. No evidence of vessel truncation. Neck CTA 04/05/18 00:06 CONCLUSION: 1. Negative exam. No significant stenosis seen. CT CAD 04/05/18 00:15 CONCLUSION: Physiological brain perfusion parameters with RAPID analysis as above. The decision for consideration of therapy is multi factorial and multi disciplinary relying on subjective and objective clinical data. This data is not construed or intended to be the sole determinant of treatment eligibility. Caprini VTE Risk Assessment Caprini VTE Risk Assessment: No/Low Risk (score <= 1) Caprini Risk Assessment Model: Point Value = 1 Point Value = 2 Point Value = 3 Point Value = 5 Age 41-60 Minor surgery BMI > 25 kg/m2 Swollen legs Varicose veins or History of unexplained or recurrent spontaneous Oral contraceptives or hormone replacement Sepsis (< 1 month) Serious lung disease, including pneumonia (< 1 month) Abnormal pulmonary function Acute myocardial infarction Congestive heart failure (< 1 month) History of inflammatory bowel disease Medical patient at bed rest Age 61-74 Arthroscopic surgery Major open surgery (> 45 min) Laparoscopic surgery (> 45 min) Malignancy Confined to bed (> 72 hours) Immobilizing plaster cast Central venous access Age >= 75 History of VTE Family history of VTE Factor V Leiden Prothrombin [id number] Lupus anticoagulant Anticardiolipin antibodies Elevated serum homocysteine Heparin-induced thrombocytopenia Other congenital or acquired thrombophilia Stroke (< 1 month) Elective arthroplasty Hip, pelvis, or leg fracture Acute spinal cord injury (< 1 month) Prophylaxis Regimen: Total Risk Factor Score Risk Level Prophylaxis Regimen 0-1 Low Early ambulation 2 Moderate Order ONE of the following: *Sequential Compression Device (SCD) *Heparin 5000 units SQ BID 3-4 Higher Order ONE of the following medications: *Heparin 5000 units SQ TID *Enoxaparin/Lovenox 40 mg SQ daily (WT < 150 kg, CrCl > 30 mL/min) *Enoxaparin/Lovenox 30 mg SQ daily (WT < 150 kg, CrCl > 10-29 mL/min) *Enoxaparin/Lovenox 30 mg SQ BID (WT < 150 kg, CrCl > 30 mL/min) AND/OR *Sequential Compression Device (SCD) 5 or more Highest Order ONE of the following medications: *Heparin 5000 units SQ TID (Preferred with Epidurals) *Enoxaparin/Lovenox 40 mg SQ daily (WT < 150 kg, CrCl > 30 mL/min) *Enoxaparin/Lovenox 30 mg SQ daily (WT < 150 kg, CrCl > 10-29 mL/min) *Enoxaparin/Lovenox 30 mg SQ BID (WT < 150 kg, CrCl > 30 mL/min) AND *Sequential Compression Device (SCD) Assessment and Plan - Plan Mr. Morrissey is a pleasant 87-year-old male with a history of hypertension, Parkinson's disease, pacemaker placement who presented to the emergency department on 04/04/2018 due to slurred speech noted by his . Neurology was consulted. Probable acute stroke -CT head shows no acute abnormalities. -Neck and head CTA unremarkable. -Echocardiogram shows ejection fraction 40-45%. -Patient is currently on aspirin 81 mg p.o. daily. -Pacemaker device interrogation. -MRI pending if it can be done with patient's pacemaker. Hypertension Hx of pacemaker placement -[employer] pacemaker placed by Dr. Hurt -BP within reasonable range. Hx of Parkinson's disease - Continue Sinemet Full code. SCDs.
--- NOTE | 2018-04-05 11:50 | MB ---
cc: Jonah Mena MD DATE: 04/05/2018 HISTORY OF PRESENT ILLNESS: An 87-year-old right-handed man with a pacemaker, CABG, 2 stents, Parkinson disease, seen at the [facility]. He sees Dr. Hurt. I was called with a stroke alert at about midnight last night and was told that he had been in a bar, had a few drinks, that he had Parkinson disease and that his speech had become somewhat dysarthric. He did not have any weakness or numbness or other deficits. As such, his NIH stroke scale was a 1 and we decided not to give him TPA. It was unclear if he even had a stroke with that history, In talking to his this morning; however, evidently he was not at a bar. He was at home and he had the onset of the speech problems. It had been also about 4 hours since the onset when he had come to the ER. REVIEW OF SYSTEMS: According to him and his , no history of hypertension, diabetes, hypercholesterolemia, known fibrillation, renal, hepatic or pulmonary disease, thyroid disease, lupus, cancer, seizure, prior stroke. He does not take blood thinners because he had some GI bleeding in the past, although evidently they never wanted him to take any strong blood thinners, according to the . SOCIAL HISTORY: Nonsmoker, drinker, lives with his . FAMILY HISTORY: Negative for cancer, seizure, stroke. MEDICATIONS AT HOME: He is on trazodone 50 mg at bedtime. He takes Sinemet 25/100 one pill in the morning, noon, and 5 p.m. However, he was supposed to be taking 2 and a few weeks ago dropped down to 1. BuSpar 15 b.i.d. for anxiety, metoprolol a 50/200, Sinemet at bedtime, and tramadol p.r.n. He was having some nausea and vomiting with the regular Sinemet, but not with the extended release. That is why he dropped from 2 pills to 1 pill. PHYSICAL EXAMINATION: VITAL SIGNS: Afebrile, 75, 139/67 to 166/73. NECK: There were no carotid bruits. HEART: Regular rhythm. I do not detect a murmur. NEUROLOGIC: Pupils are equal. Visual chance are full. Extraocular movements intact without nystagmus. Face is symmetric with normal sensation. Tongue was midline. No drift. He had normal strength in upper and lower extremities bilaterally. He has mild to moderate cogwheel rigidity bilateral upper extremities. He has a coarse moderate resting tremor pretty continuously in the right upper extremity. He is somewhat bradykinetic and hypophonic along with hypomimetic. Toes are downgoing bilaterally. DTRs are absent throughout. Pinprick is intact throughout upper and lower extremities and face bilaterally. He is not ataxic on [id number]. His speech is somewhat muffled, slightly dysarthric. He is not aphasic. He can name and repeat. He was off on the month and the year, however. LABORATORY DATA: CBC was normal. Urine drug screen, UA normal. Basic metabolic profile, creatinine 1.4, otherwise normal. Coagulation studies were normal. Creatinine was 1.38 in 08/2014. LFTs were normal in 2011. He had an elevated LDL in 2011 to 143. TSH normal. Hepatitis screen has been negative in the past. He had a CT perfusion done, which was normal. He had a CTA of his neck done showed which showed no narrowing. He had a head CTA done, which was negative also. The right KRAFT DIGESTER OPERATOR comes from the anterior circulation. He had a CAT scan of his brain done, which showed moderate severe atrophy. His EKG shows that he is paced. Review of the CAT scan of the brain, there was to fear severe diffuse atrophy and white matter changes. Chest x-ray was done, as he has had some shortness of breath. It showed right upper and left lower developing infiltrate, apparently consistent with pneumonia. IMPRESSION: 1. Parkinson's disease. 2. Some dementia. 3. Pacemaker. It is unclear if he had a small stroke here or just the pneumonia and Parkinson's. I would start him on the baby aspirin a day. I would switch him to the 50/200 one at 8, noon, and 4 and 1 at bedtime, at about 8 p.m. In addition, we will check his lipid profile and troponin. If it is felt he has pneumonia, he should be treated with antibiotics. We will get a swallow evaluation. It is possible he could have had a small stroke here. We will see what his echocardiogram shows and will try and contact Dr. Hurt to see if this patient has ever had any atrial fibrillation. We should also have the pacemaker interrogated for any atrial fibrillation. As far as his Sinemet goes, put him on the 50/200 to avoid the nausea and his will [facility] with extra carbidopa, i.e., Lodosyn 25 mg pills. MD YARA Disla/joan , 10:38 AM , 10:48 AM
--- NOTE | 2018-04-05 13:09 | ECHRPT ---
Indication: CVA/TIA CONCLUSIONS The left ventricular systolic function is moderately reduced with an estimated ejection fraction in the range of 40-45%. Poor image quality. In some views EF appears normal. Wall thickness is normal. Normal left ventricular size. The left atrial size is mildly dilated. Mild aortic valve regurgitation. There is mild to moderate tricuspid valve regurgitation. The estimated pulmonary arterial pressure is 33 mmHg. BP: / HR: Rhythm: Sinus MEASUREMENTS (Male / Female) Normal Values Technical Quality:Technically difficult study-poor quality 2D ECHO LV Diastolic Diameter PLAX 3.4 cm 4.2 - 5.9 / 3.9 - 5.3 cm LV Systolic Diameter PLAX 2.8 cm IVS Diastolic Thickness 0.9 cm 0.6 - 1.0 / 0.6 - 0.9 cm LVPW Diastolic Thickness 0.9 cm 0.6 - 1.0 / 0.6 - 0.9 cm LV Relative Wall Thickness 0.5 LVOT Diameter 2.0 cm M-MODE Aortic Root Diameter MM 4.3 cm LA Systolic Diameter MM 4.1 cm LA Ao Ratio MM 1.0 AV Cusp Separation MM 2.2 cm DOPPLER AV Peak Velocity 121.0 cm/s AV Peak Gradient 5.9 mmHg AI Peak Velocity 352.0 cm/s AI Peak Gradient 49.6 mmHg AI Pressure Half Time 857.0 ms LVOT Peak Velocity 109.0 cm/s LVOT Peak Gradient 4.8 mmHg AV Area Cont Eq pk 2.8 cm Mitral E Point Velocity 95.3 cm/s Mitral A Point Velocity 64.2 cm/s Mitral E to A Ratio 1.5 LV E' Lateral Velocity 6.2 cm/s Mitral E to LV E' Lateral Ratio 15.3 LV E' Septal Velocity 5.3 cm/s Mitral E to LV E' Septal Ratio 18.1 TR Peak Velocity 240.0 cm/s TR Peak Gradient 23.0 mmHg Right Atrial Pressure 10.0 mmHg Pulmonary Artery Systolic Pressu 33.0 mmHg Right Ventricular Systolic Press 33.0 mmHg PV Peak Velocity 100.0 cm/s PV Peak Gradient 4.0 mmHg FINDINGS LEFT VENTRICLE The left ventricular systolic function is moderately reduced with an estimated ejection fraction in the range of 40-45%. Wall thickness is normal. Normal left ventricular size. RIGHT VENTRICLE Normal right ventricular size and systolic function. LEFT ATRIUM The left atrial size is mildly dilated. RIGHT ATRIUM The right atrial size is normal. ATRIAL SEPTUM Normal atrial septal thickness without atrial level shunting by limited color doppler interrogation. AORTA The aortic root and proximal ascending aorta are normal in size on limited imaging. MITRAL VALVE Structurally normal mitral valve. No mitral valve stenosis or regurgitation. AORTIC VALVE Mild aortic valve regurgitation. TRICUSPID VALVE There is mild to moderate tricuspid valve regurgitation. The estimated pulmonary arterial pressure is 33 mmHg. PULMONARY VALVE No pulmonary valve regurgitation or stenosis. VESSELS The inferior vena cava is normal in size. PERICARDIUM No pericardial effusion. Parisa Presley MD, FACC (Electronically Signed) Final Date:05 April 2018 13:09
[2018-04-05 13:14] LABS: Free T4 (Free Thyroxine) 1.31 ng/dL (0.76-1.46); Thyroid Stimulating Hormone 1.28 uIU/mL (0.358-3.740)
[2018-04-05] MEDS: Carbidopa/Levodopa CR 50/200 MG Tablet PO SCH ×2 (14:25→17:48)
[2018-04-05] MEDS: Nystatin 100,000 UNITS/GM Powder 15 GM Bottle TOPICAL SCH (17:48)
--- NOTE | 2018-04-06 00:15 | ECG ---
Date Performed: 04/04/2018 Time Performed: 23:48:17 PTAGE: 87 years EKG: ELECTRONIC ATRIAL PACEMAKER ELECTRONIC VENTRICULAR PACEMAKER ABNORMAL RHYTHM ECG DOCTOR: Aakash Ca Interpretating Date/Time 04/06/2018 00:14:51
[2018-04-06] MEDS: Sod Chloride 0.9% Inj 1,000 ML IV.CONT SCH ×2 (04:29→20:03)
[2018-04-06] MEDS: Nystatin 100,000 UNITS/GM Powder 15 GM Bottle TOPICAL SCH ×5 (04:33→20:04)
[2018-04-06 07:59] LABS: Cholesterol 96 mg/dL (120-200)
[2018-04-06 08:01] LABS: Chol/HDL Ratio 3.21 Ratio; HDL Cholesterol 29.9 mg/dL (40.0-60.0); LDL Cholesterol,Calculated 48 mg/dL (0-99); Triglycerides 89 mg/dL (42-150)
[2018-04-06 08:03] LABS: Creatine Kinase 91 U/L (39-308)
[2018-04-06] MEDS: Carbidopa/Levodopa CR 50/200 MG Tablet PO SCH ×3 (09:37→17:28)
--- NOTE | 2018-04-06 10:20 | P.PN ---
Subjective Interval history: Follow up for possible stroke, parkinson's disease. Patient is resting in bed. He complains of right hip pain. No fever, chills. Physical Exam Vital signs: Vital Signs 04/05/18 11:46 04/05/18 15:29 04/05/18 16:00 Temperature 97.7 F 98.2 F Pulse Rate 75 73 Respiratory Rate 18 18 Blood Pressure 140/72 117/63 Pulse Oximetry 97 96 96 04/05/18 20:00 04/06/18 00:00 04/06/18 04:00 Temperature 98.2 F 97.3 F L 98.1 F Pulse Rate 74 83 73 Respiratory Rate 18 18 18 Blood Pressure 111/55 L 135/73 161/73 H Pulse Oximetry 95 96 96 04/06/18 04:08 04/06/18 08:00 Temperature 97.7 F Pulse Rate 73 72 Respiratory Rate 16 Blood Pressure 157/73 H Pulse Oximetry 98 Intake & Output 04/05/18 04/06/18 04/06/18 18:59 06:59 18:59 Intake Total 1000 / 1000 1140 / 1140 Output Total 250 / 250 635 / 635 Balance 750 / 750 505 / 505 Weight 92.6 kg 96.8 kg Intake: IV 1000 / 1000 1000 / 1000 NS Inj 1,000 ML @ 70 mls/hr IV. 1000 / 1000 1000 / 1000 CONT .[id number] [facility] Rx#:[id number] Oral 140 / 140 Output: Urine 250 / 250 635 / 635 Other: # Voids 1 Date of Last Bowel Movement 04/04/18 Weight On Admission 177.8 kg Narrative: GENERAL: This is a well-nourished, well-developed patient, in no apparent distress. SKIN: No rashes, ecchymoses or lesions. Warm and dry. HEAD: Atraumatic. Normocephalic. No temporal or scalp tenderness. EYES: Pupils equal round and reactive. No injection or drainage. ENT: Nose without bleeding, purulent drainage or septal hematoma. Airway patent. NECK: Trachea midline. No lymphadenopathy. Supple, nontender, no meningeal signs. CARDIOVASCULAR: Regular rate and rhythm without murmurs, gallops, or rubs. No JVD. RESPIRATORY: Clear to auscultation. Breath sounds equal bilaterally. No wheezes , rales, or rhonchi. GASTROINTESTINAL: Abdomen soft, non-tender, nondistended. No guarding. MUSCULOSKELETAL: Extremities without clubbing, cyanosis, or edema. NEUROLOGICAL: Awake and alert. Cranial nerves II through XII intact. Right upper extremity slow movement noted. Speech appears to be somewhat slow. - Urinary Catheter Management Straight Cath placed during this visit: yes, but has since been removed by the nurse Reason for continuing: Not indwelling catheter Insertion date: 04/05/18 Insertion time: 00:50 Removal date: 04/05/18 Removal time: 00:50 Results - Labs CBC & Chem 7: 04/05/18 00:15 Laboratory Results - last 24 hr 04/05/18 04/05/18 04/05/18 11:42 11:42 17:29 ESR 17 POC Glucose 114 H Total Creatine Kinase Triglycerides Cholesterol LDL Cholesterol, Calc HDL Cholesterol Cholesterol/HDL Ratio Vitamin B12 193 TSH 1.280 Free T4 1.31 Phenytoin 04/05/18 04/06/18 04/06/18 20:58 07:09 08:18 ESR POC Glucose 95 88 Total Creatine Kinase 91 Triglycerides 89 Cholesterol 96 L LDL Cholesterol, Calc 48 HDL Cholesterol 29.9 L Cholesterol/HDL Ratio 3.21 Vitamin B12 TSH Free T4 Phenytoin Less than 0.4 L - Imaging Chest X-Ray 04/05/18 00:06 CONCLUSION: Interstitial prominence right upper lung and left lower lung may represent developing infiltrate. Head CT 04/05/18 00:06 CONCLUSION: 1. No acute findings in the brain. 2. Moderate severity atrophy. The report was called to Dr. Samuel at 12:29 AM. Head CTA 04/05/18 00:06 CONCLUSION: 1. Negative exam. No evidence of vessel truncation. Neck CTA 04/05/18 00:06 CONCLUSION: 1. Negative exam. No significant stenosis seen. CT CAD 04/05/18 00:15 CONCLUSION: Physiological brain perfusion parameters with RAPID analysis as above. The decision for consideration of therapy is multi factorial and multi disciplinary relying on subjective and objective clinical data. This data is not construed or intended to be the sole determinant of treatment eligibility. Assessment and Plan - Plan Mr. Morrissey is a pleasant 87-year-old male with a history of hypertension, Parkinson's disease, pacemaker placement who presented to the emergency department on 04/04/2018 due to slurred speech noted by his . Neurology was consulted. Probable acute stroke -CT head shows no acute abnormalities. -Neck and head CTA unremarkable. -Echocardiogram shows ejection fraction 40-45%. -Patient is currently on aspirin 81 mg p.o. daily. -Pacemaker device interrogation - shows Atrial flutter back in September and January 2018. -MRI pending if it can be done with patient's pacemaker. Paroxysmal Atrial flutter - [id number] score 3 (age, HTN) - He would benefit from Anticoagulation. Hypertension Hx of pacemaker placement -[employer] pacemaker placed by Dr. Hurt -BP within reasonable range. Hx of Parkinson's disease - Continue Sinemet Right hip pain - Remote hx of hip surgery, revision. Will get X-ray study. Full code. SCDs.
[2018-04-06 13:37] LABS: Hemoglobin A1c 5.6 % (4.3-6.0)
[2018-04-06] MEDS: clonazePAM 0.5 MG Tablet PO SCH ×2 (14:46→21:19)
--- NOTE | 2018-04-06 15:54 | XR ---
EXAM DATE: 04/06/2018 3:45 PM EDT AGE/SEX: 87 years / Male INDICATIONS: Right hip pain, denies injury CLINICAL DATA: This is the patient's initial encounter. Patient reports that signs and symptoms have been present for 2 days and indicates a pain score of 4/10. MEDICAL/SURGICAL HISTORY: . Parkinson's disease. Hypertension. . Pacemaker COMPARISON: HPO, HIP RIGHT (AP&LAT 2/3VWS) WO AP PELVIS, 03/08/2011. . FINDINGS: The patient has a right long stemmed hip arthroplasty with uncemented components. There is some heter otopic ossification overlying the femoral neck and intertrochanteric region which is chronic. I don't see any evidence of fracture or hardware failure. Patient is osteopenic. Visualized left hip is unre markable. Bony pelvis is unremarkable. CONCLUSION: Right hip arthroplasty. No fracture or complication Electronically signed by: Srini Elias MD 04/06/2018 3:53 PM EDT
--- NOTE | 2018-04-06 17:39 | P.PNNEU ---
Subjective Subjective Comments: pacer showed aflutter in september and january Active Medications: Active Medications Aspirin (Aspirin Chew) 81 mg PO DAILY [facility] Last Admin: 04/06/18 09:37 Dose: 81 mg Carbidopa/Levodopa (Sinemet Cr 50/200 Mg) 1 tab PO TID [facility] Last Admin: 04/06/18 17:28 Dose: 1 tab Clonazepam (Klonopin) 0.5 mg PO Q8HR [facility] Last Admin: 04/06/18 14:46 Dose: 0.5 mg Dextrose (D50w Vial) 50 ml IV.PUSH UNSCH PRN PRN Reason: PER HYPOGLYCEMIA PROTOCOL Glucagon (Glucagon Inj) 1 mg OTHER UNSCH PRN PRN Reason: for Hypoglycemia Protocol Sodium Chloride (Ns Inj) 1,000 mls @ 70 mls/hr IV.CONT .[id number] [facility] Last Admin: 04/06/18 04:29 Dose: 70 mls/hr Nystatin (Mycostatin Powder) 1 applicatio TOPICAL QID [facility] Last Admin: 04/06/18 17:29 Dose: 1 applicatio Sodium Chloride (Ns Flush) 2 ml IV.FLUSH BID [facility] Last Admin: 04/06/18 09:37 Dose: 2 ml Sodium Chloride (Ns Flush) 2 ml IV.FLUSH PRN PRN PRN Reason: FLUSH AFTER USING IV ACCESS Tramadol HCl (Ultram) 50 mg PO Q8H PRN PRN Reason: pain 1 to 10 Last Admin: 04/05/18 14:30 Dose: 50 mg Allergies/Adverse Reactions: Allergies Allergy/AdvReac Type Severity Reaction Status Date / Time No Known Allergies Allergy Verified 04/04/18 23:53 Physical Exam Vital signs: Vital Signs 04/05/18 20:00 04/06/18 00:00 04/06/18 04:00 Temperature 98.2 F 97.3 F L 98.1 F Pulse Rate 74 83 73 Respiratory Rate 18 18 18 Blood Pressure 111/55 L 135/73 161/73 H Pulse Oximetry 95 96 96 04/06/18 04:08 04/06/18 08:00 04/06/18 09:00 Temperature 97.7 F Pulse Rate 73 72 105 H Respiratory Rate 16 Blood Pressure 157/73 H Pulse Oximetry 99 04/06/18 12:00 04/06/18 16:00 Temperature 98.5 F 98.3 F Pulse Rate 73 71 Respiratory Rate 16 14 Blood Pressure 146/65 H 118/61 Pulse Oximetry 92 L 95 Intake & Output 04/05/18 04/06/18 04/06/18 18:59 06:59 18:59 Intake Total 1000 / 1000 1140 / 1140 Output Total 250 / 250 635 / 635 Balance 750 / 750 505 / 505 Weight 92.6 kg 96.8 kg Intake: IV 1000 / 1000 1000 / 1000 NS Inj 1,000 ML @ 70 mls/hr IV. 1000 / 1000 1000 / 1000 CONT .[id number] [facility] Rx#:[id number] Oral 140 / 140 Output: Urine 250 / 250 635 / 635 Other: # Voids 1 Date of Last Bowel Movement 04/04/18 Weight On Admission 177.8 kg Narrative: speech stronger and looks a little faster on higher dose cr sinemet awake alert in chair - Urinary Catheter Management Straight Cath placed during this visit: yes, but has since been removed by the nurse Reason for continuing: Not indwelling catheter Insertion date: 04/05/18 Insertion time: 00:50 Removal date: 04/05/18 Removal time: 00:50 Objective Laboratory Results - last 24 hr 04/05/18 04/06/18 04/06/18 20:58 07:09 07:09 POC Glucose 95 Hemoglobin A1c 5.6 Total Creatine Kinase 91 Triglycerides 89 Cholesterol 96 L LDL Cholesterol, Calc 48 HDL Cholesterol 29.9 L Cholesterol/HDL Ratio 3.21 Phenytoin Less than 0.4 L 04/06/18 04/06/18 08:18 12:37 POC Glucose 88 104 Hemoglobin A1c Total Creatine Kinase Triglycerides Cholesterol LDL Cholesterol, Calc HDL Cholesterol Cholesterol/HDL Ratio Phenytoin Review/Management - Review/Management Plan: imp b12 shots PT and ambulate on sinemet higher dose echo ef 45% la 41 some aflutter and i would agree with anticoag and pt to dw dr portillo tomorrow fu troponin check standing bp
[2018-04-07] MEDS: clonazePAM 0.5 MG Tablet PO SCH ×3 (05:05→23:09)
--- NOTE | 2018-04-07 07:50 | P.PNNEU ---
Subjective Subjective Comments: paced sr Active Medications: Active Medications Aspirin (Aspirin Chew) 81 mg PO DAILY [facility] Last Admin: 04/06/18 09:37 Dose: 81 mg Carbidopa/Levodopa (Sinemet Cr 50/200 Mg) 1 tab PO TID [facility] Last Admin: 04/06/18 17:28 Dose: 1 tab Clonazepam (Klonopin) 0.5 mg PO Q8HR [facility] Last Admin: 04/07/18 05:05 Dose: 0.5 mg Cyanocobalamin (Vitamin B12 Inj) 1,000 mcg SQ ONCE [facility] Last Admin: 04/06/18 19:37 Dose: 1,000 mcg Dextrose (D50w Vial) 50 ml IV.PUSH UNSCH PRN PRN Reason: PER HYPOGLYCEMIA PROTOCOL Glucagon (Glucagon Inj) 1 mg OTHER UNSCH PRN PRN Reason: for Hypoglycemia Protocol Sodium Chloride (Ns Inj) 1,000 mls @ 70 mls/hr IV.CONT .[id number] [facility] Last Admin: 04/06/18 20:03 Dose: 70 mls/hr Multivitamins (Theragran) 1 tab PO DAILY [facility] Last Admin: 04/06/18 19:37 Dose: 1 tab Nystatin (Mycostatin Powder) 1 applicatio TOPICAL QID [facility] Last Admin: 04/06/18 20:04 Dose: 1 applicatio Sodium Chloride (Ns Flush) 2 ml IV.FLUSH BID [facility] Last Admin: 04/06/18 20:04 Dose: 2 ml Sodium Chloride (Ns Flush) 2 ml IV.FLUSH PRN PRN PRN Reason: FLUSH AFTER USING IV ACCESS Tramadol HCl (Ultram) 50 mg PO Q8H PRN PRN Reason: pain 1 to 10 Last Admin: 04/07/18 05:05 Dose: 50 mg Allergies/Adverse Reactions: Allergies Allergy/AdvReac Type Severity Reaction Status Date / Time No Known Allergies Allergy Verified 04/04/18 23:53 Physical Exam Vital signs: Vital Signs 04/06/18 08:00 04/06/18 09:00 04/06/18 12:00 Temperature 97.7 F 98.5 F Pulse Rate 72 105 H 73 Respiratory Rate 16 16 Blood Pressure 157/73 H 146/65 H Pulse Oximetry 99 92 L 04/06/18 16:00 04/06/18 20:00 04/07/18 00:00 Temperature 98.3 F 98.2 F 97.8 F Pulse Rate 71 69 85 Respiratory Rate 14 18 18 Blood Pressure 118/61 128/65 139/71 Pulse Oximetry 95 94 L 94 L 04/07/18 04:00 Temperature 98.1 F Pulse Rate 75 Respiratory Rate 18 Blood Pressure 152/71 H Pulse Oximetry 96 Intake & Output 04/06/18 04/07/18 04/07/18 18:59 06:59 18:59 Intake Total 1140 / 1140 Output Total 350 / 350 Balance -350 / -350 1140 / 1140 Weight 94.7 kg Intake: IV 1000 / 1000 NS Inj 1,000 ML @ 70 mls/hr IV. 1000 / 1000 CONT .[id number] [facility] Rx#:[id number] Oral 140 / 140 Output: Urine 350 / 350 Other: # Voids 725 Date of Last Bowel Movement 04/06/18 Narrative: speech stronger and looks a little faster on higher dose cr sinemet speech better moves all well - Urinary Catheter Management Straight Cath placed during this visit: yes, but has since been removed by the nurse Reason for continuing: Not indwelling catheter Insertion date: 04/05/18 Insertion time: 00:50 Removal date: 04/05/18 Removal time: 00:50 Objective Laboratory Results - last 24 hr 04/06/18 04/06/18 04/06/18 07:09 07:09 08:18 POC Glucose 88 Hemoglobin A1c 5.6 Total Creatine Kinase 91 Troponin I Triglycerides 89 Cholesterol 96 L LDL Cholesterol, Calc 48 HDL Cholesterol 29.9 L Cholesterol/HDL Ratio 3.21 Phenytoin Less than 0.4 L 04/06/18 04/06/18 12:37 21:05 POC Glucose 104 Hemoglobin A1c Total Creatine Kinase Troponin I Less than 0.02 L Triglycerides Cholesterol LDL Cholesterol, Calc HDL Cholesterol Cholesterol/HDL Ratio Phenytoin Review/Management - Review/Management Plan: imp b12 shots PT and ambulate on sinemet higher dose echo ef 45% la 41 some aflutter and i would agree with anticoag and pt to dw dr portillo tomorrow fu troponin check standing bp ----- 04/07/18 trop neg check standing bp dr portillo for anticoag fu echo ok to dc ow if standing bp ok to home or rehab
[2018-04-07] MEDS: Carbidopa/Levodopa CR 50/200 MG Tablet PO SCH ×3 (08:25→18:36)
[2018-04-07] MEDS: Nystatin 100,000 UNITS/GM Powder 15 GM Bottle TOPICAL SCH ×4 (08:26→23:12)
[2018-04-07] MEDS: Sod Chloride 0.9% Inj 1,000 ML IV.CONT SCH (12:53)
--- NOTE | 2018-04-07 14:49 | P.CONCA ---
History of Present Illness Service: Cardiology Consult date: 04/07/18 Requesting Physician: Yi Grace Reason for Consult: Increase weakness and fatigue, questionable pacemaker function Primary Care Provider: Srini Spain Chief Complaint: Slurred speech History of Present Illness: This is a very pleasant 87-year-old male known to Dr. Hurt with a past medical history of congestive heart failure, Parkinson's disease, coronary artery disease, dual-chamber pacemaker placement, hypertension and dyslipidemia. Patient's states that on 04/04/2018 patient began to have slurred speech around 6 PM and had difficulty walking due to right groin pain. On 04/05/2018, brought him to the emergency department for further evaluation. With further questioning, patient states that 3 weeks ago he started getting very weak and was unable to walk any distance without stopping multiple times to catch his breath and regain his strength. When questioned about his medication, states that he stopped taking his furosemide 3 weeks ago and has gained a significant amount of weight. She states that she has had to alter his undergarments due to his abdomen becoming extremely distended. Patient's states that he ran out of his furosemide and she just never called the office to get it refilled. Patient denies any chest pain, pressure, palpitations, or dizziness over the last 3 weeks. Currently, he denies any chest pain, pressure, palpitations, dizziness or edema. He does complain of shortness of breath with any exertion. Review of Systems All other systems reviewed negative except as stated in HPI PMFSH - History History Provided By: Patient - Medical History Medical History: Medical History (Last Reviewed 04/07/18 @ 09:14 by Edilia Benavidez) Chronic pain Hypertension Pacemaker Parkinson disease - Surgical History Surgical History: Surgical History (Last Reviewed 04/07/18 @ 09:14 by Edilia Benavidez) History of permanent cardiac pacemaker placement History of total right hip replacement Hx of cardiac cath Hx of joint replacement - Tobacco History Second Hand Smoke Exposure: No Smoking Status: Never smoker - Alcohol History How Often Do You Have a Drink Containing Alcohol: Never - Substance Use History Substance History: No History of Abuse - Travel History Recent Travel in the [place] Within the Last 8 Weeks: No Recent Travel Out of the Country Within the Last 8 Weeks: No - Immunization History Tetanus Immunization: Unable to Assess Hx Influenza Vaccine This Season: Yes Medications and Allergies Allergies Allergy/AdvReac Type Severity Reaction Status Date / Time No Known Allergies Allergy Verified 04/04/18 23:53 Home Medications Medication Instructions Recorded Confirmed Type buspirone 15 mg PO BID 04/05/18 04/05/18 History carbidopa-levodopa 15 mg PO TID 04/05/18 04/05/18 History carbidopa-levodopa 200 mg PO HS 04/05/18 04/05/18 History metoprolol tartrate 25 mg PO DAILY 04/05/18 04/05/18 History tramadol 50 mg PO Q4-6H PRN 04/05/18 04/05/18 History trazodone 50 mg PO HS 04/05/18 04/05/18 History Active Medications: Active Medications Aspirin (Aspirin Chew) 81 mg PO DAILY [facility] Last Admin: 04/07/18 08:25 Dose: 81 mg Carbidopa/Levodopa (Sinemet Cr 50/200 Mg) 1 tab PO TID [facility] Last Admin: 04/07/18 12:51 Dose: 1 tab Clonazepam (Klonopin) 0.5 mg PO Q8HR [facility] Last Admin: 04/07/18 13:11 Dose: 0.5 mg Cyanocobalamin (Vitamin B12 Inj) 1,000 mcg SQ ONCE [facility] Last Admin: 04/06/18 19:37 Dose: 1,000 mcg Dextrose (D50w Vial) 50 ml IV.PUSH UNSCH PRN PRN Reason: PER HYPOGLYCEMIA PROTOCOL Glucagon (Glucagon Inj) 1 mg OTHER UNSCH PRN PRN Reason: for Hypoglycemia Protocol Sodium Chloride (Ns Inj) 1,000 mls @ 70 mls/hr IV.CONT .[id number] [facility] Last Admin: 04/07/18 12:53 Dose: Not Given Multivitamins (Theragran) 1 tab PO DAILY [facility] Last Admin: 04/07/18 08:25 Dose: 1 tab Nystatin (Mycostatin Powder) 1 applicatio TOPICAL QID [facility] Last Admin: 04/07/18 12:52 Dose: 1 applicatio Sodium Chloride (Ns Flush) 2 ml IV.FLUSH BID [facility] Last Admin: 04/07/18 08:25 Dose: 2 ml Sodium Chloride (Ns Flush) 2 ml IV.FLUSH PRN PRN PRN Reason: FLUSH AFTER USING IV ACCESS Tramadol HCl (Ultram) 50 mg PO Q8H PRN PRN Reason: pain 1 to 10 Last Admin: 04/07/18 12:56 Dose: 50 mg Exam Vital signs: Vital Signs 04/06/18 16:00 04/06/18 20:00 04/07/18 00:00 Temperature 98.3 F 98.2 F 97.8 F Pulse Rate 71 69 85 Respiratory Rate 14 18 18 Blood Pressure 118/61 128/65 139/71 Pulse Oximetry 95 94 L 94 L 04/07/18 04:00 04/07/18 08:00 04/07/18 10:18 Temperature 98.1 F 98.6 F Pulse Rate 75 71 Respiratory Rate 18 18 Blood Pressure 152/71 H 142/69 H Pulse Oximetry 96 94 L 95 04/07/18 12:00 Temperature 96.3 F L Pulse Rate 83 Respiratory Rate 18 Blood Pressure 101/72 Pulse Oximetry 95 Intake & Output 04/06/18 04/07/18 04/07/18 18:59 06:59 18:59 Intake Total 1140 / 1140 1000 / 1000 Output Total 350 / 350 Balance -350 / -350 1140 / 1140 1000 / 1000 Weight 94.7 kg Intake: IV 1000 / 1000 1000 / 1000 NS Inj 1,000 ML @ 70 mls/hr IV. 1000 / 1000 1000 / 1000 CONT .[id number] [facility] Rx#:[id number] Oral 140 / 140 Output: Urine 350 / 350 Other: # Voids 725 Date of Last Bowel Movement 04/06/18 - Constitutional no acute distress - Routine HEENT Exam Head: Present: normocephalic Eye: Present: PERRL ENT: Present: mucous membranes moist - Routine Neck Exam Present: full ROM - Routine Respiratory Exam Present: decreased breath sounds Comments: Diminished air movement bilaterally lower lobes - Routine Cardiovascular Exam Present: S1, S2, irregular rhythm Comments: Atrial fibrillation with pacer beats - Routine Abdominal Exam Present: normoactive bowel sounds Comments: Abdomen slightly distended - Routine Extremities Exam Present: full ROM, pulses intact, normal capillary refill. Absent: cyanosis, clubbing, edema - Routine Skin Exam Present: intact - Routine Neurological Exam Present: oriented X3 Results 04/05/18 00:15 Cardiac Enzymes 04/06/18 Range/Units 21:05 Troponin I Less than 0.02 L (0.02-0.05) ng/mL Lipids 10/28/18 Range/Units 07:09 Triglycerides 89 (42-150) mg/dL Cholesterol 96 L (120-200) mg/dL HDL Cholesterol 29.9 L (40.0-60.0) mg/dL Cholesterol/HDL Ratio 3.21 Ratio Intake and Output 04/06/18 04/07/18 04/07/18 22:59 06:59 14:59 Intake Total 1000 / 1000 140 / 140 1000 / 1000 Output Total 350 / 350 Balance 650 / 650 140 / 140 1000 / 1000 Intake: IV 1000 / 1000 1000 / 1000 NS Inj 1,000 ML @ 70 mls/hr IV. 1000 / 1000 1000 / 1000 CONT .[id number] [facility] Rx#:[id number] Oral 140 / 140 Output: Urine 350 / 350 Other: # Voids 725 Date of Last Bowel Movement 04/06/18 Weight 94.7 kg - Imaging and Cardiology Imaging: Impressions Hip X-Ray 04/06/18 00:00 CONCLUSION: Right hip arthroplasty. No fracture or complication Assessment and Plan - Assessment (1) Slurred speech Code(s): R47.81 - Slurred speech Status: Acute (2) History of cardiac pacemaker Code(s): Z95.0 - Presence of cardiac pacemaker Status: Acute (3) Fluid retention Code(s): R60.9 - Edema, unspecified Status: Acute (4) Hypertension Code(s): I10 - Essential (primary) hypertension Status: Acute (5) History of Parkinson's disease Code(s): Z86.69 - Personal history of other diseases of the nervous system and sense organs Status: Acute - Plan Patient was brought into the ER for slurred speech, neurology evaluation in progress. Patient's pacemaker is functioning within normal limits. We will start torsemide 10mg PO QD due to fluid retention. We will monitor electrolytes and replace as needed. We will continue to monitor him during his hospitalization and follow up in our office post discharge. Patient was seen and evaluated by Dr. Hurt who participated in care, management and decision making. - Attending Attestation Patient seen and examined. I reviewed and agree with the evaluation and plan as presented. Normal pacemaker function. Continue current program. Increase activity.
[2018-04-07 14:59] LABS: Anti-Nuclear Antibody Screen Neg (Neg)
--- NOTE | 2018-04-07 17:32 | P.PN ---
Subjective Interval history: Follow up for possible stroke, parkinson's disease. Patient is currently doing well. No fever, chills. He reports improvement of his right hip as he walks. Right hip x-ray was unremarkable for any acute findings. Physical Exam Vital signs: Vital Signs 04/06/18 20:00 04/07/18 00:00 04/07/18 04:00 Temperature 98.2 F 97.8 F 98.1 F Pulse Rate 69 85 75 Respiratory Rate 18 18 18 Blood Pressure 128/65 139/71 152/71 H Pulse Oximetry 94 L 94 L 96 04/07/18 08:00 04/07/18 10:18 04/07/18 12:00 Temperature 98.6 F 96.3 F L Pulse Rate 71 83 Respiratory Rate 18 Blood Pressure 142/69 H 101/72 Pulse Oximetry 94 L 95 95 Intake & Output 04/06/18 04/07/18 04/07/18 18:59 06:59 18:59 Intake Total 1140 / 1140 1000 / 1000 Output Total 350 / 350 60 / 60 Balance -350 / -350 1140 / 1140 940 / 940 Weight 94.7 kg Intake: IV 1000 / 1000 1000 / 1000 NS Inj 1,000 ML @ 70 mls/hr IV. 1000 / 1000 1000 / 1000 CONT .[id number] [facility] Rx#:[id number] Oral 140 / 140 Output: Urine 350 / 350 60 / 60 Other: # Voids 725 Date of Last Bowel Movement 04/06/18 Narrative: GENERAL: This is a well-nourished, well-developed patient, in no apparent distress. SKIN: No rashes, ecchymoses or lesions. Warm and dry. HEAD: Atraumatic. Normocephalic. No temporal or scalp tenderness. EYES: Pupils equal round and reactive. No injection or drainage. ENT: Nose without bleeding, purulent drainage or septal hematoma. Airway patent. NECK: Trachea midline. No lymphadenopathy. Supple, nontender, no meningeal signs. CARDIOVASCULAR: Regular rate and rhythm without murmurs, gallops, or rubs. No JVD. RESPIRATORY: Clear to auscultation. Breath sounds equal bilaterally. No wheezes , rales, or rhonchi. GASTROINTESTINAL: Abdomen soft, non-tender, nondistended. No guarding. MUSCULOSKELETAL: Extremities without clubbing, cyanosis, or edema. NEUROLOGICAL: Awake and alert. Cranial nerves II through XII intact. Right upper extremity slow movement noted. Speech appears to be somewhat slow. - Urinary Catheter Management Straight Cath placed during this visit: yes, but has since been removed by the nurse Reason for continuing: Not indwelling catheter Insertion date: 04/05/18 Insertion time: 00:50 Removal date: 04/05/18 Removal time: 00:50 Results - Labs CBC & Chem 7: 04/05/18 00:15 Laboratory Results - last 24 hr 04/05/18 04/06/18 11:42 21:05 Troponin I Less than 0.02 L ZOË Screen Neg RPR Nonreactive Assessment and Plan - Plan Mr. Morrissey is a pleasant 87-year-old male with a history of hypertension, Parkinson's disease, pacemaker placement who presented to the emergency department on 04/04/2018 due to slurred speech noted by his . Neurology was consulted. Probable acute stroke -CT head shows no acute abnormalities. -Neck and head CTA unremarkable. -Echocardiogram shows ejection fraction 40-45%. -Patient is currently on aspirin 81 mg p.o. daily. -Pacemaker device interrogation - shows Atrial flutter back in September and January 2018. -MRI pending if it can be done with patient's pacemaker. Paroxysmal Atrial flutter - [id number] score 3 (age, HTN) - Per cardiology, patient was on anticoagulants from before. However he developed significant GI bleed requiring multiple transfusions. Hypertension Hx of pacemaker placement Chronic congestive heart failure - systolic. -[employer] pacemaker placed by Dr. Hurt -Cardiology has evaluated patient. Torsemide 10mg Qday started. Hx of Parkinson's disease - Continue Sinemet Right hip pain - Remote hx of hip surgery, revision. X-ray unremarkable for any acute findings. Full code. SCDs. Anticoagulation maybe relatively contraindicated due to prior GI bleed.
[2018-04-08] MEDS: Sod Chloride 0.9% Inj 1,000 ML IV.CONT SCH ×2 (03:09→15:25)
[2018-04-08] MEDS: clonazePAM 0.5 MG Tablet PO SCH ×3 (06:39→21:37)
[2018-04-08 07:45] LABS: Calcium 8.5 mg/dL (8.5-10.1); Carbon Dioxide 26.6 meq/L (21.0-32.0)
[2018-04-08] MEDS: Carbidopa/Levodopa CR 50/200 MG Tablet PO SCH ×3 (08:05→17:32)
[2018-04-08] MEDS: Nystatin 100,000 UNITS/GM Powder 15 GM Bottle TOPICAL SCH ×4 (08:05→21:37)
--- NOTE | 2018-04-08 08:13 | P.PNNEU ---
Subjective Active Medications: Active Medications Aspirin (Aspirin Chew) 81 mg PO DAILY [facility] Last Admin: 04/08/18 08:04 Dose: 81 mg Carbidopa/Levodopa (Sinemet Cr 50/200 Mg) 1 tab PO TID [facility] Last Admin: 04/08/18 08:05 Dose: 1 tab Clonazepam (Klonopin) 0.5 mg PO Q8HR [facility] Last Admin: 04/08/18 06:39 Dose: 0.5 mg Cyanocobalamin (Vitamin B12 Inj) 1,000 mcg SQ ONCE [facility] Last Admin: 04/06/18 19:37 Dose: 1,000 mcg Dextrose (D50w Vial) 50 ml IV.PUSH UNSCH PRN PRN Reason: PER HYPOGLYCEMIA PROTOCOL Glucagon (Glucagon Inj) 1 mg OTHER UNSCH PRN PRN Reason: for Hypoglycemia Protocol Sodium Chloride (Ns Inj) 1,000 mls @ 70 mls/hr IV.CONT .[id number] [facility] Last Admin: 04/08/18 03:09 Dose: Not Given Multivitamins (Theragran) 1 tab PO DAILY [facility] Last Admin: 04/08/18 08:05 Dose: 1 tab Nystatin (Mycostatin Powder) 1 applicatio TOPICAL QID [facility] Last Admin: 04/08/18 08:05 Dose: 1 applicatio Sodium Chloride (Ns Flush) 2 ml IV.FLUSH BID [facility] Last Admin: 04/07/18 23:12 Dose: Not Given Sodium Chloride (Ns Flush) 2 ml IV.FLUSH PRN PRN PRN Reason: FLUSH AFTER USING IV ACCESS Torsemide (Demadex) 10 mg PO DAILY [facility] Last Admin: 04/08/18 08:04 Dose: 10 mg Tramadol HCl (Ultram) 50 mg PO Q8H PRN PRN Reason: pain 1 to 10 Last Admin: 04/08/18 03:49 Dose: 50 mg Allergies/Adverse Reactions: Allergies Allergy/AdvReac Type Severity Reaction Status Date / Time No Known Allergies Allergy Verified 04/04/18 23:53 Physical Exam Vital signs: Vital Signs 04/07/18 10:18 04/07/18 12:00 04/07/18 16:00 Temperature 96.3 F L 98.3 F Pulse Rate 83 78 Respiratory Rate 18 16 Blood Pressure 101/72 117/72 Pulse Oximetry 95 95 95 04/07/18 20:00 04/07/18 20:45 04/07/18 23:50 Temperature 98.5 F 98.1 F Pulse Rate 68 70 70 Respiratory Rate 15 16 Blood Pressure 112/62 120/59 L Pulse Oximetry 985 H 94 L 04/08/18 00:00 04/08/18 04:00 04/08/18 04:50 Temperature 98.3 F Pulse Rate 72 68 76 Respiratory Rate 16 Blood Pressure 147/79 H Pulse Oximetry 96 Intake & Output 04/07/18 04/08/18 04/08/18 18:59 06:59 18:59 Intake Total 1000 / 1000 840 / 840 Output Total 60 / 60 250 / 250 Balance 940 / 940 590 / 590 Weight 94.8 kg Intake: IV 1000 / 1000 NS Inj 1,000 ML @ 70 mls/hr IV. 1000 / 1000 CONT .[id number] [facility] Rx#:[id number] Oral 840 / 840 Output: Urine 60 / 60 250 / 250 Other: # Voids 4 Date of Last Bowel Movement 04/08/18 # Bowel Movements 1 Narrative: stands take few mod steps afraid of fall speech little slurred - Urinary Catheter Management Straight Cath placed during this visit: yes, but has since been removed by the nurse Reason for continuing: Not indwelling catheter Insertion date: 04/05/18 Insertion time: 00:50 Removal date: 04/05/18 Removal time: 00:50 Objective Laboratory Results - last 24 hr 04/05/18 04/08/18 11:42 06:49 Sodium 142 Potassium 4.0 Chloride 107 Carbon Dioxide 26.6 Anion Gap 8 BUN 16 Creatinine 1.45 H Estimated GFR 46 L Random Glucose 107 H Calcium 8.5 ZOË Screen Neg RPR Nonreactive Review/Management - Review/Management Plan: imp b12 shots PT and ambulate on sinemet higher dose echo ef 45% la 41 some aflutter and i would agree with anticoag and pt to dw dr portillo tomorrow fu troponin check standing bp ----- 04/07/18 trop neg check standing bp dr portillo for anticoag fu echo ok to dc ow if standing bp ok to home or rehab 04/08/18 bp standing not done i lm for dr portillo ef 45% la 41 as above
--- NOTE | 2018-04-08 13:30 | P.PNCA ---
Subjective Interval history: Patient denies any CP, pressure, palpitations, dizziness, or shortness of breath. Patient does complain of mild dizziness when getting up but it resolves in a few seconds. Medications and Allergies Allergies Allergy/AdvReac Type Severity Reaction Status Date / Time No Known Allergies Allergy Verified 04/04/18 23:53 Home Medications Medication Instructions Recorded Confirmed Type buspirone 15 mg PO BID 04/05/18 04/05/18 History carbidopa-levodopa 15 mg PO TID 04/05/18 04/05/18 History carbidopa-levodopa 200 mg PO HS 04/05/18 04/05/18 History metoprolol tartrate 25 mg PO DAILY 04/05/18 04/05/18 History tramadol 50 mg PO Q4-6H PRN 04/05/18 04/05/18 History trazodone 50 mg PO HS 04/05/18 04/05/18 History Active Medications: Active Medications Aspirin (Aspirin Chew) 81 mg PO DAILY [facility] Last Admin: 04/08/18 08:04 Dose: 81 mg Carbidopa/Levodopa (Sinemet Cr 50/200 Mg) 1 tab PO TID [facility] Last Admin: 04/08/18 08:05 Dose: 1 tab Clonazepam (Klonopin) 0.5 mg PO Q8HR [facility] Last Admin: 04/08/18 06:39 Dose: 0.5 mg Cyanocobalamin (Vitamin B12 Inj) 1,000 mcg SQ ONCE [facility] Last Admin: 04/06/18 19:37 Dose: 1,000 mcg Dextrose (D50w Vial) 50 ml IV.PUSH UNSCH PRN PRN Reason: PER HYPOGLYCEMIA PROTOCOL Glucagon (Glucagon Inj) 1 mg OTHER UNSCH PRN PRN Reason: for Hypoglycemia Protocol Sodium Chloride (Ns Inj) 1,000 mls @ 70 mls/hr IV.CONT .[id number] [facility] Last Admin: 04/08/18 03:09 Dose: Not Given Multivitamins (Theragran) 1 tab PO DAILY [facility] Last Admin: 04/08/18 08:05 Dose: 1 tab Nystatin (Mycostatin Powder) 1 applicatio TOPICAL QID [facility] Last Admin: 04/08/18 12:33 Dose: 1 applicatio Sodium Chloride (Ns Flush) 2 ml IV.FLUSH BID [facility] Last Admin: 04/08/18 09:46 Dose: 2 ml Sodium Chloride (Ns Flush) 2 ml IV.FLUSH PRN PRN PRN Reason: FLUSH AFTER USING IV ACCESS Torsemide (Demadex) 10 mg PO DAILY [facility] Last Admin: 04/08/18 08:04 Dose: 10 mg Tramadol HCl (Ultram) 50 mg PO Q8H PRN PRN Reason: pain 1 to 10 Last Admin: 04/08/18 03:49 Dose: 50 mg Physical Exam Vital signs: Vital Signs 04/07/18 16:00 04/07/18 20:00 04/07/18 20:45 Temperature 98.3 F 98.5 F Pulse Rate 78 68 70 Respiratory Rate 16 15 Blood Pressure 117/72 112/62 Pulse Oximetry 95 985 H 04/07/18 23:50 04/08/18 00:00 04/08/18 04:00 Temperature 98.1 F Pulse Rate 70 72 68 Respiratory Rate 16 Blood Pressure 120/59 L Pulse Oximetry 94 L 04/08/18 04:50 04/08/18 08:00 04/08/18 08:58 Temperature 98.3 F 98.7 F Pulse Rate 76 79 Respiratory Rate 16 16 Blood Pressure 147/79 H 131/78 Pulse Oximetry 96 96 94 L 04/08/18 12:00 Temperature 98.7 F Pulse Rate 74 Respiratory Rate 16 Blood Pressure 96/58 L Pulse Oximetry 98 Intake & Output 04/07/18 04/08/18 04/08/18 18:59 06:59 18:59 Intake Total 1000 / 1000 840 / 840 Output Total 60 / 60 250 / 250 Balance 940 / 940 590 / 590 Weight 94.8 kg Intake: IV 1000 / 1000 NS Inj 1,000 ML @ 70 mls/hr IV. 1000 / 1000 CONT .[id number] [facility] Rx#:[id number] Oral 840 / 840 Output: Urine 60 / 60 250 / 250 Other: # Voids 4 Date of Last Bowel Movement 04/08/18 04/07/18 # Bowel Movements 1 - Constitutional no acute distress - Routine HEENT Exam Head: Present: normocephalic Eye: Present: PERRL ENT: Present: mucous membranes moist - Routine Neck Exam Present: full ROM - Routine Respiratory Exam Present: CTA bilaterally, crackles Comments: fine crackles in the bases, bilateral. - Routine Cardiovascular Exam Present: S1, S2. Absent: murmur, gallop, rubs - Routine Abdominal Exam Present: normoactive bowel sounds - Routine Extremities Exam Present: edema, full ROM, pulses intact, normal capillary refill. Absent: cyanosis, clubbing Comments: trace edema in the lower extremities. - Routine Skin Exam Present: intact - Routine Neurological Exam Present: oriented X3 - Detailed Neurological Exam: Coma Scale Eye Opening: Spontaneous Verbal Response: Oriented Motor Response: Obey commands [place] Coma Scale Total: 15 - Routine Psychiatric Exam Present: normal affect - Urinary Catheter Management Straight Cath placed during this visit: yes, but has since been removed by the nurse Reason for continuing: Not indwelling catheter Insertion date: 04/05/18 Insertion time: 00:50 Removal date: 04/05/18 Removal time: 00:50 Results 04/05/18 00:15 04/08/18 06:49 Cardiac Enzymes 04/06/18 Range/Units 21:05 Troponin I Less than 0.02 L (0.02-0.05) ng/mL Comprehensive Metabolic Panel 04/08/18 Range/Units 06:49 Sodium 142 (136-145) meq/L Potassium 4.0 (3.5-5.1) meq/L Chloride 107 (98-107) meq/L Carbon Dioxide 26.6 (21.0-32.0) meq/L BUN 16 (7-18) mg/dL Creatinine 1.45 H (0.60-1.30) mg/dL Calcium 8.5 (8.5-10.1) mg/dL Intake and Output 04/07/18 04/08/18 04/08/18 22:59 06:59 14:59 Intake Total 480 / 480 360 / 360 Output Total 60 / 60 250 / 250 Balance 420 / 420 110 / 110 Intake: Oral 480 / 480 360 / 360 Output: Urine 60 / 60 250 / 250 Other: # Voids 4 Date of Last Bowel Movement 04/06/18 04/08/18 04/07/18 # Bowel Movements 2 1 Weight 94.8 kg - Imaging and Cardiology Imaging: Impressions Hip X-Ray 04/06/18 00:00 CONCLUSION: Right hip arthroplasty. No fracture or complication Assessment and Plan - Assessment (1) Slurred speech Code(s): R47.81 - Slurred speech Status: Acute (2) History of cardiac pacemaker Code(s): Z95.0 - Presence of cardiac pacemaker Status: Acute (3) Fluid retention Code(s): R60.9 - Edema, unspecified Status: Acute (4) Hypertension Code(s): I10 - Essential (primary) hypertension Status: Acute (5) History of Parkinson's disease Code(s): Z86.69 - Personal history of other diseases of the nervous system and sense organs Status: Acute - Plan Patient states that he is starting to feel better and has been getting up and walking to the bathroom. Patient has positive ortho state BP, encourage patient to drink fluids. Pacemaker evaluation showed atrial tachycardia/flutter. He can benefit from full anticoagulation with a novel anticoagulant. We will continue to monitor him during his hospitalization and follow up in our office post discharge. Patient was seen and evaluated by Dr. Hurt who participated in care, management and decision making. - Attending Attestation Patient seen and examined. I reviewed and agree with the evaluation and plan as presented. His pacemaker evaluation showed episodes of atrial tachycardia/ flutter, full anticoagulation is recommended.
--- NOTE | 2018-04-08 15:35 | HM ---
Date Performed: 04/05/2018 Time Performed: 16:56:00 HOOKUP DATE: 04/05/18 04:56:00 PM Sat ANALYSIS START TIME: 04/05/2018 5:01:00 PM ANALYSIS END TIME: 04/06/2018 1:57:59 PM PATIENT AGE: 87 PATIENT HEIGHT PATIENT WEIGHT DRUG LIST PATIENT DIAGNOSIS: cva TEST NARRATIVE: The patient's average heart rate was 73 BPM. Heart rates greater than 120 B PM were noted < 1% of the time. Heart rates less than 50 BPM were noted < 1% of the time. No landon ses exceeding 2.0 seconds were noted. 307 ventricular ectopics, which represented < 1% of the tot al beat count, were noted. The highest ventricular ectopic frequency occurred from 03:00 AM to 04:00 AM Sun. During this time 30 VE(s) occurred. Ventricular ectopics were observed as 301 isolated channing t(s) and as 3 couplet(s). No runs were noted. No supraventricular ectopics were noted. No ep isodes of ST depression (defined as -1.0 mm or more) were noted in channel 1. No episodes of ST depr ession (defined as -1.0 mm or more) were noted in channel 2. No episodes of ST depression (defined a s -1.0 mm or more) were noted in channel 3. TEST INTERPRETATION: the patient was monitored for 20 hours and 57mins. There was demand ventric ular pacing with an average rate [id number], there were periods of sinus bradycardia at 47bpm noccuring at 1:54pm. There was no evidence of ventricular pacing at that time. 301 PVC's. and zero PAC'S Signed by : Prasanna Alfaro
--- NOTE | 2018-04-08 16:50 | P.PN ---
Subjective Interval history: Follow up for possible stroke, parkinson's disease. Patient is doing well. Ambulating with PT. No acute concerns. Patient's states that on anti- coagulation, he had major bleed requiring 12 units of PRBCs in the past. Physical Exam Vital signs: Vital Signs 04/07/18 20:00 04/07/18 20:45 04/07/18 23:50 Temperature 98.5 F 98.1 F Pulse Rate 68 70 70 Respiratory Rate 15 16 Blood Pressure 112/62 120/59 L Pulse Oximetry 985 H 94 L 04/08/18 00:00 04/08/18 04:00 04/08/18 04:50 Temperature 98.3 F Pulse Rate 72 68 76 Respiratory Rate 16 Blood Pressure 147/79 H Pulse Oximetry 96 04/08/18 08:00 04/08/18 08:58 04/08/18 12:00 Temperature 98.7 F 98.7 F Pulse Rate 79 74 Respiratory Rate 16 16 Blood Pressure 131/78 96/58 L Pulse Oximetry 96 94 L 98 Intake & Output 04/07/18 04/08/18 04/08/18 18:59 06:59 18:59 Intake Total 1000 / 1000 840 / 840 Output Total 60 / 60 250 / 250 Balance 940 / 940 590 / 590 Weight 94.8 kg Intake: IV 1000 / 1000 NS Inj 1,000 ML @ 70 mls/hr IV. 1000 / 1000 CONT .[id number] [facility] Rx#:[id number] Oral 840 / 840 Output: Urine 60 / 60 250 / 250 Other: # Voids 4 Date of Last Bowel Movement 04/08/18 04/07/18 # Bowel Movements 1 Narrative: GENERAL: This is a well-nourished, well-developed patient, in no apparent distress. SKIN: No rashes, ecchymoses or lesions. Warm and dry. HEAD: Atraumatic. Normocephalic. No temporal or scalp tenderness. EYES: Pupils equal round and reactive. No injection or drainage. ENT: Nose without bleeding, purulent drainage or septal hematoma. Airway patent. NECK: Trachea midline. No lymphadenopathy. Supple, nontender, no meningeal signs. CARDIOVASCULAR: Regular rate and rhythm without murmurs, gallops, or rubs. No JVD. RESPIRATORY: Clear to auscultation. Breath sounds equal bilaterally. No wheezes , rales, or rhonchi. GASTROINTESTINAL: Abdomen soft, non-tender, nondistended. No guarding. MUSCULOSKELETAL: Extremities without clubbing, cyanosis, or edema. NEUROLOGICAL: Awake and alert. Cranial nerves II through XII intact. Right upper extremity slow movement noted. Speech appears to be somewhat slow. - Urinary Catheter Management Straight Cath placed during this visit: yes, but has since been removed by the nurse Reason for continuing: Not indwelling catheter Insertion date: 04/05/18 Insertion time: 00:50 Removal date: 04/05/18 Removal time: 00:50 Results - Labs CBC & Chem 7: 04/05/18 00:15 04/08/18 06:49 Laboratory Results - last 24 hr 04/08/18 06:49 Sodium 142 Potassium 4.0 Chloride 107 Carbon Dioxide 26.6 Anion Gap 8 BUN 16 Creatinine 1.45 H Estimated GFR 46 L Random Glucose 107 H Calcium 8.5 Assessment and Plan - Plan Mr. Morrissey is a pleasant 87-year-old male with a history of hypertension, Parkinson's disease, pacemaker placement who presented to the emergency department on 04/04/2018 due to slurred speech noted by his . Neurology was consulted. Probable acute stroke -CT head shows no acute abnormalities. -Neck and head CTA unremarkable. -Echocardiogram shows ejection fraction 40-45%. -Patient is currently on aspirin 81 mg p.o. daily. -Pacemaker device interrogation - shows Atrial flutter back in September and January 2018. -MRI pending if it can be done with patient's pacemaker. Paroxysmal Atrial flutter - [id number] score 3 (age, HTN) - Per cardiology, patient was on anticoagulants from before. However he developed significant GI bleed requiring multiple transfusions. Hypertension Hx of pacemaker placement Chronic congestive heart failure - systolic. -[employer] pacemaker placed by Dr. Hurt -Cardiology has evaluated patient. Torsemide 10mg Qday started. Hx of Parkinson's disease - Continue Sinemet Right hip pain - Remote hx of hip surgery, revision. X-ray unremarkable for any acute findings. Full code. SCDs. Anticoagulation maybe relatively contraindicated due to prior major GI bleed. Discharge plan: We are waiting for insurance authorization for [facility].
[2018-04-09] MEDS: Sod Chloride 0.9% Inj 1,000 ML IV.CONT SCH ×2 (04:17→21:45)
[2018-04-09] MEDS: clonazePAM 0.5 MG Tablet PO SCH ×3 (05:40→21:47)
--- NOTE | 2018-04-09 07:49 | P.PNNEU ---
Subjective Active Medications: Active Medications Aspirin (Aspirin Chew) 81 mg PO DAILY [facility] Last Admin: 04/08/18 08:04 Dose: 81 mg Carbidopa/Levodopa (Sinemet Cr 50/200 Mg) 1 tab PO TID [facility] Last Admin: 04/08/18 17:32 Dose: 1 tab Clonazepam (Klonopin) 0.5 mg PO Q8HR [facility] Last Admin: 04/09/18 05:40 Dose: 0.5 mg Cyanocobalamin (Vitamin B12 Inj) 1,000 mcg SQ ONCE [facility] Last Admin: 04/06/18 19:37 Dose: 1,000 mcg Dextrose (D50w Vial) 50 ml IV.PUSH UNSCH PRN PRN Reason: PER HYPOGLYCEMIA PROTOCOL Glucagon (Glucagon Inj) 1 mg OTHER UNSCH PRN PRN Reason: for Hypoglycemia Protocol Sodium Chloride (Ns Inj) 1,000 mls @ 70 mls/hr IV.CONT .[id number] [facility] Last Admin: 04/09/18 04:17 Dose: Not Given Midodrine (Proamatine) 2.5 mg PO TID@0700,1200,1700 [facility] Multivitamins (Theragran) 1 tab PO DAILY [facility] Last Admin: 04/08/18 08:05 Dose: 1 tab Nystatin (Mycostatin Powder) 1 applicatio TOPICAL QID [facility] Last Admin: 04/08/18 21:37 Dose: 1 applicatio Sodium Chloride (Ns Flush) 2 ml IV.FLUSH BID [facility] Last Admin: 04/08/18 21:37 Dose: 2 ml Sodium Chloride (Ns Flush) 2 ml IV.FLUSH PRN PRN PRN Reason: FLUSH AFTER USING IV ACCESS Torsemide (Demadex) 10 mg PO DAILY [facility] Last Admin: 04/08/18 08:04 Dose: 10 mg Allergies/Adverse Reactions: Allergies Allergy/AdvReac Type Severity Reaction Status Date / Time No Known Allergies Allergy Verified 04/04/18 23:53 Physical Exam Vital signs: Vital Signs 04/08/18 08:00 04/08/18 08:58 04/08/18 12:00 Temperature 98.7 F 98.7 F Pulse Rate 79 74 Respiratory Rate 16 16 Blood Pressure 131/78 96/58 L Pulse Oximetry 96 94 L 98 04/08/18 16:00 04/08/18 19:03 04/08/18 20:00 Temperature 98.5 F 98.0 F Pulse Rate 84 70 79 Respiratory Rate 18 18 Blood Pressure 129/67 104/57 L Pulse Oximetry 96 95 04/08/18 23:00 04/09/18 00:00 04/09/18 03:29 Temperature 97.9 F 97.8 F Pulse Rate 76 65 71 Respiratory Rate 18 18 Blood Pressure 108/63 127/62 Pulse Oximetry 94 L 96 04/09/18 04:00 Temperature Pulse Rate 62 Respiratory Rate Blood Pressure Pulse Oximetry Intake & Output 04/08/18 04/09/18 04/09/18 18:59 06:59 18:59 Intake Total 360 / 360 360 / 360 Output Total 425 / 425 650 / 650 Balance -65 / -65 -290 / -290 Weight 94.8 kg Intake: Oral 360 / 360 360 / 360 Output: Urine 425 / 425 650 / 650 Other: Date of Last Bowel Movement 04/07/18 04/08/18 # Bowel Movements 1 Narrative: awake alert feeling ok bp 85/ standing - Urinary Catheter Management Straight Cath placed during this visit: yes, but has since been removed by the nurse Reason for continuing: Not indwelling catheter Insertion date: 04/05/18 Insertion time: 00:50 Removal date: 04/05/18 Removal time: 00:50 Review/Management - Review/Management Plan: imp b12 shots PT and ambulate on sinemet higher dose echo ef 45% la 41 some aflutter and i would agree with anticoag and pt to dw dr portillo tomorrow fu troponin check standing bp ----- 04/07/18 trop neg check standing bp dr portillo for anticoag fu echo ok to dc ow if standing bp ok to home or rehab 04/08/18 bp standing not done i lm for dr portillo ef 45% la 41 as above 04/09/18 bvery orthostatic i dw cards and midodrine ok so 2.5 started watch standing bp cards rec eliquis so med team plz start that today dc tramadol
[2018-04-09] MEDS: Carbidopa/Levodopa CR 50/200 MG Tablet PO SCH ×3 (08:29→17:54)
[2018-04-09] MEDS: Nystatin 100,000 UNITS/GM Powder 15 GM Bottle TOPICAL SCH ×4 (08:30→21:43)
--- NOTE | 2018-04-09 14:38 | P.PN ---
Subjective Interval history: Follow up for possible stroke, parkinson's disease, Afib. Patient is resting in bed. No acute concerns. Physical Exam Vital signs: Vital Signs 04/08/18 16:00 04/08/18 19:03 04/08/18 20:00 Temperature 98.5 F 98.0 F Pulse Rate 84 70 79 Respiratory Rate 18 18 Blood Pressure 129/67 104/57 L Pulse Oximetry 96 95 04/08/18 23:00 04/09/18 00:00 04/09/18 03:29 Temperature 97.9 F 97.8 F Pulse Rate 76 65 71 Respiratory Rate 18 18 Blood Pressure 108/63 127/62 Pulse Oximetry 94 L 96 04/09/18 04:00 04/09/18 08:00 04/09/18 10:51 Temperature 97.1 F L Pulse Rate 62 80 Respiratory Rate 17 Blood Pressure 127/58 L Pulse Oximetry 96 96 04/09/18 12:00 Temperature 98.8 F Pulse Rate 73 Respiratory Rate 17 Blood Pressure 124/67 Pulse Oximetry 96 Intake & Output 04/08/18 04/09/18 04/09/18 18:59 06:59 18:59 Intake Total 360 / 360 360 / 360 Output Total 425 / 425 650 / 650 Balance -65 / -65 -290 / -290 Weight 94.8 kg Intake: Oral 360 / 360 360 / 360 Output: Urine 425 / 425 650 / 650 Other: Date of Last Bowel Movement 04/07/18 04/08/18 04/08/18 # Bowel Movements 1 Narrative: GENERAL: Resting in bed, NAD. SKIN: Warm and dry. HEAD: Normocephalic. EYES: No scleral icterus. No injection or drainage. NECK: Supple, trachea midline. No JVD or lymphadenopathy. CARDIOVASCULAR: Regular rate and rhythm without murmurs, gallops, or rubs. RESPIRATORY: Breath sounds equal bilaterally. No accessory muscle use. GASTROINTESTINAL: Abdomen soft, non-tender, nondistended. MUSCULOSKELETAL: No cyanosis, or edema. BACK: Nontender without obvious deformity. No CVA tenderness. - Urinary Catheter Management Straight Cath placed during this visit: yes, but has since been removed by the nurse Reason for continuing: Not indwelling catheter Insertion date: 04/05/18 Insertion time: 00:50 Removal date: 04/05/18 Removal time: 00:50 Results - Labs CBC & Chem 7: 04/05/18 00:15 04/08/18 06:49 Laboratory Results - last 24 hr 04/05/18 11:42 Methylmalonic Acid 1.66 H Assessment and Plan - Plan Mr. Morrissey is a pleasant 87-year-old male with a history of hypertension, Parkinson's disease, pacemaker placement who presented to the emergency department on 04/04/2018 due to slurred speech noted by his . Neurology was consulted. Probable acute stroke -CT head shows no acute abnormalities. -Neck and head CTA unremarkable. -Echocardiogram shows ejection fraction 40-45%. -Patient is currently on aspirin 81 mg p.o. daily. -Pacemaker device interrogation - shows Atrial flutter back in September and January 2018. Paroxysmal Atrial flutter - [id number] score 3 (age, HTN) - Cardiology recommends starting anticoagulation. - Will start Apixaban 5mg BID. Hypertension Hx of pacemaker placement Chronic congestive heart failure - systolic. -[employer] pacemaker placed by Dr. Hurt -Cardiology has evaluated patient. Torsemide 10mg Qday started. Hx of Parkinson's disease - Continue Sinemet Right hip pain - Remote hx of hip surgery, revision. X-ray unremarkable for any acute findings. Full code. Apixaban to start tonight. Probable discharge tomorrow.
--- NOTE | 2018-04-09 14:58 | P.PNCA ---
Subjective Interval history: Patient denies any CP, pressure, palpitations, edema or SOB. Patient does complain of dizziness when he gets up. Medications and Allergies Allergies Allergy/AdvReac Type Severity Reaction Status Date / Time No Known Allergies Allergy Verified 04/04/18 23:53 Home Medications Medication Instructions Recorded Confirmed Type buspirone 15 mg PO BID 04/05/18 04/05/18 History carbidopa-levodopa 15 mg PO TID 04/05/18 04/05/18 History carbidopa-levodopa 200 mg PO HS 04/05/18 04/05/18 History metoprolol tartrate 25 mg PO DAILY 04/05/18 04/05/18 History tramadol 50 mg PO Q4-6H PRN 04/05/18 04/05/18 History trazodone 50 mg PO HS 04/05/18 04/05/18 History Active Medications: Active Medications Apixaban (Eliquis) 5 mg PO BID [facility] Carbidopa/Levodopa (Sinemet Cr 50/200 Mg) 1 tab PO TID [facility] Last Admin: 04/09/18 13:03 Dose: 1 tab Clonazepam (Klonopin) 0.5 mg PO Q8HR [facility] Last Admin: 04/09/18 13:03 Dose: 0.5 mg Cyanocobalamin (Vitamin B12 Inj) 1,000 mcg SQ ONCE [facility] Last Admin: 04/06/18 19:37 Dose: 1,000 mcg Dextrose (D50w Vial) 50 ml IV.PUSH UNSCH PRN PRN Reason: PER HYPOGLYCEMIA PROTOCOL Glucagon (Glucagon Inj) 1 mg OTHER UNSCH PRN PRN Reason: for Hypoglycemia Protocol Sodium Chloride (Ns Inj) 1,000 mls @ 70 mls/hr IV.CONT .[id number] [facility] Last Admin: 04/09/18 04:17 Dose: Not Given Midodrine (Proamatine) 2.5 mg PO TID@0700,1200,1700 [facility] Last Admin: 04/09/18 14:19 Dose: 2.5 mg Miscellaneous (Pill Splitter) 1 each OTHER UNSCH [facility] Multivitamins (Theragran) 1 tab PO DAILY [facility] Last Admin: 04/09/18 08:29 Dose: 1 tab Nystatin (Mycostatin Powder) 1 applicatio TOPICAL QID [facility] Last Admin: 04/09/18 13:03 Dose: 1 applicatio Sodium Chloride (Ns Flush) 2 ml IV.FLUSH BID [facility] Last Admin: 04/09/18 08:30 Dose: 2 ml Sodium Chloride (Ns Flush) 2 ml IV.FLUSH PRN PRN PRN Reason: FLUSH AFTER USING IV ACCESS Torsemide (Demadex) 10 mg PO DAILY [facility] Last Admin: 04/09/18 08:30 Dose: 10 mg Physical Exam Vital signs: Vital Signs 04/08/18 16:00 04/08/18 19:03 04/08/18 20:00 Temperature 98.5 F 98.0 F Pulse Rate 84 70 79 Respiratory Rate 18 18 Blood Pressure 129/67 104/57 L Pulse Oximetry 96 95 04/08/18 23:00 04/09/18 00:00 04/09/18 03:29 Temperature 97.9 F 97.8 F Pulse Rate 76 65 71 Respiratory Rate 18 18 Blood Pressure 108/63 127/62 Pulse Oximetry 94 L 96 04/09/18 04:00 04/09/18 08:00 04/09/18 10:51 Temperature 97.1 F L Pulse Rate 62 80 Respiratory Rate 17 Blood Pressure 127/58 L Pulse Oximetry 96 96 04/09/18 12:00 Temperature 98.8 F Pulse Rate 73 Respiratory Rate 17 Blood Pressure 124/67 Pulse Oximetry 96 Intake & Output 04/08/18 04/09/18 04/09/18 18:59 06:59 18:59 Intake Total 360 / 360 360 / 360 Output Total 425 / 425 650 / 650 Balance -65 / -65 -290 / -290 Weight 94.8 kg Intake: Oral 360 / 360 360 / 360 Output: Urine 425 / 425 650 / 650 Other: Date of Last Bowel Movement 04/07/18 04/08/18 04/08/18 # Bowel Movements 1 - Constitutional no acute distress - Routine HEENT Exam Head: Present: normocephalic Eye: Present: PERRL ENT: Present: mucous membranes moist - Routine Neck Exam Present: full ROM - Routine Respiratory Exam Present: CTA bilaterally Comments: fine crackles bases of the lower lobes bilateral - Routine Cardiovascular Exam Present: S1, S2, irregular rhythm. Absent: murmur, gallop - Routine Abdominal Exam Present: normoactive bowel sounds - Routine Extremities Exam Present: edema, full ROM, pulses intact, normal capillary refill. Absent: cyanosis, clubbing - Routine Skin Exam Present: intact - Routine Neurological Exam Present: oriented X3 - Detailed Neurological Exam: Coma Scale Eye Opening: Spontaneous Verbal Response: Oriented Motor Response: Obey commands [place] Coma Scale Total: 15 - Routine Psychiatric Exam Present: normal affect - Urinary Catheter Management Straight Cath placed during this visit: yes, but has since been removed by the nurse Reason for continuing: Not indwelling catheter Insertion date: 04/05/18 Insertion time: 00:50 Removal date: 04/05/18 Removal time: 00:50 Results 04/05/18 00:15 04/08/18 06:49 Comprehensive Metabolic Panel 04/08/18 Range/Units 06:49 Sodium 142 (136-145) meq/L Potassium 4.0 (3.5-5.1) meq/L Chloride 107 (98-107) meq/L Carbon Dioxide 26.6 (21.0-32.0) meq/L BUN 16 (7-18) mg/dL Creatinine 1.45 H (0.60-1.30) mg/dL Calcium 8.5 (8.5-10.1) mg/dL Intake and Output 04/08/18 04/09/18 04/09/18 22:59 06:59 14:59 Intake Total 360 / 360 360 / 360 Output Total 425 / 425 650 / 650 Balance -65 / -65 -290 / -290 Intake: Oral 360 / 360 360 / 360 Output: Urine 425 / 425 650 / 650 Other: Date of Last Bowel Movement 04/08/18 04/08/18 # Bowel Movements 1 Weight 94.8 kg Assessment and Plan - Assessment (1) Slurred speech Code(s): R47.81 - Slurred speech Status: Acute (2) History of cardiac pacemaker Code(s): Z95.0 - Presence of cardiac pacemaker Status: Acute (3) Fluid retention Code(s): R60.9 - Edema, unspecified Status: Acute (4) Hypertension Code(s): I10 - Essential (primary) hypertension Status: Acute (5) History of Parkinson's disease Code(s): Z86.69 - Personal history of other diseases of the nervous system and sense organs Status: Acute - Plan Patient has severe orthostatic hypotension, recommend starting midodrine or Northera. Pacemaker evaluation showed atrial tachycardia/flutter. He can benefit from full anticoagulation with a novel anticoagulant. We will continue with current cardiac treatment plan. We will continue to monitor during his hospitalization and follow up in our office after discharge. Patient was seen and evaluated by Dr. Hurt who participated in care, management and decision making. - Attending Attestation Patient seen and examined. I reviewed and agree with the evaluation and plan as presented. Start midodrine, if necessary Northera as well. Recommend full anticoagulation (Eliquis). Increase activity, PT. Transfer to rehab as planned. D/w pt and .
--- NOTE | 2018-04-09 17:52 | P.CONREH ---
History of Present Illness Service: Physical medicine and rehabilitation Consult date: 04/09/18 Reason for Consult: Comprehensive rehabilitation evaluation Primary Care Provider: [facility] [place] Chief Complaint: Slurred speech History of Present Illness: Solitario Morrissey is an 87-year-old [id number] male admitted [facility] 04/05/18 with slurred speech. Head CT was negative but showed moderate to severe atrophy. CTA of the head was negative. Was unable to have MRI due to pacemaker. He was evaluated by neurology and cardiology. He was noted to have atrial flutter present in September and January. Anticoagulation with Eliquis was recommended. He was started on torsemide. He was noted to have orthostatic hypotension admitted drain has been started. Sinemet been adjusted to 50/200 one tablet 3 times daily. He has been mobilized with physical therapy and is now minimal to contact-guard for ambulation with a 4 wheeled walker 120 feet but has difficulty with loss of balance without upper extremity support, freezing, festination and white basis support. He requires moderate assistance to transfer safely standing to sitting. Review of Systems Constitutional: Denies headache(s) Eyes: Denies double vision Ears, Nose, Mouth, and Throat: Reports abnormal hearing, Denies difficulty swallowing Cardiovascular: Denies chest pain Respiratory: Reports shortness of breath, Reports shortness of breath with activity Gastrointestinal: Reports constipation, Denies abdominal pain, Denies nausea Genitourinary: Reports urinary urgency Musculoskeletal: Reports abnormal walking, Reports limited joint movement, Reports muscle weakness Skin/Breast: Denies rash Neurologic: Reports abnormal hearing, Denies tingling/numbness/burning sensations Psychiatric: Denies confusion Hematologic/Lymphatic: Denies easy bruising Allergic/Immunologic: Denies wheezing PMFSH - History History Provided By: Patient, Family Member () - Medical History Medical History: Medical History (Last Reviewed 04/10/18 @ 12:40 by Elin Cummins MD) Chronic pain Hypertension Pacemaker Parkinson disease - Surgical History Surgical History: Surgical History (Last Reviewed 04/10/18 @ 12:40 by Elin Cummins MD) History of permanent cardiac pacemaker placement History of total right hip replacement Hx of cardiac cath Hx of joint replacement - Social History I have reviewed the patient's Social History: Yes - Tobacco History Second Hand Smoke Exposure: No Smoking Status: Never smoker - Alcohol History How Often Do You Have a Drink Containing Alcohol: Never - Substance Use History Substance History: No History of Abuse - Travel History Recent Travel in the [place] Within the Last 8 Weeks: No Recent Travel Out of the Country Within the Last 8 Weeks: No - Immunization History Tetanus Immunization: Unable to Assess Hx Influenza Vaccine This Season: Yes Medications and Allergies Active Medications: Active Medications Apixaban (Eliquis) 5 mg PO BID [facility] Carbidopa/Levodopa (Sinemet Cr 50/200 Mg) 1 tab PO TID [facility] Last Admin: 04/09/18 13:03 Dose: 1 tab Clonazepam (Klonopin) 0.5 mg PO Q8HR [facility] Last Admin: 04/09/18 13:03 Dose: 0.5 mg Cyanocobalamin (Vitamin B12 Inj) 1,000 mcg SQ ONCE [facility] Last Admin: 04/06/18 19:37 Dose: 1,000 mcg Dextrose (D50w Vial) 50 ml IV.PUSH UNSCH PRN PRN Reason: PER HYPOGLYCEMIA PROTOCOL Glucagon (Glucagon Inj) 1 mg OTHER UNSCH PRN PRN Reason: for Hypoglycemia Protocol Sodium Chloride (Ns Inj) 1,000 mls @ 70 mls/hr IV.CONT .[id number] [facility] Last Admin: 04/09/18 04:17 Dose: Not Given Midodrine (Proamatine) 2.5 mg PO TID@0700,1200,1700 [facility] Last Admin: 04/09/18 14:19 Dose: 2.5 mg Miscellaneous (Pill Splitter) 1 each OTHER UNSCH [facility] Multivitamins (Theragran) 1 tab PO DAILY [facility] Last Admin: 04/09/18 08:29 Dose: 1 tab Nystatin (Mycostatin Powder) 1 applicatio TOPICAL QID [facility] Last Admin: 04/09/18 13:03 Dose: 1 applicatio Sodium Chloride (Ns Flush) 2 ml IV.FLUSH BID [facility] Last Admin: 04/09/18 08:30 Dose: 2 ml Sodium Chloride (Ns Flush) 2 ml IV.FLUSH PRN PRN PRN Reason: FLUSH AFTER USING IV ACCESS Torsemide (Demadex) 10 mg PO DAILY [facility] Last Admin: 04/09/18 08:30 Dose: 10 mg Allergies Allergy/AdvReac Type Severity Reaction Status Date / Time No Known Allergies Allergy Verified 04/04/18 23:53 Home Medications Medication Instructions Recorded Confirmed Type buspirone 15 mg PO BID 04/05/18 04/05/18 History carbidopa-levodopa 15 mg PO TID 04/05/18 04/05/18 History carbidopa-levodopa 200 mg PO HS 04/05/18 04/05/18 History metoprolol tartrate 25 mg PO DAILY 04/05/18 04/05/18 History tramadol 50 mg PO Q4-6H PRN 04/05/18 04/05/18 History trazodone 50 mg PO HS 04/05/18 04/05/18 History Exam - Physical Examination Vital Signs / I&O: Vital Signs 04/08/18 19:03 04/08/18 20:00 04/08/18 23:00 Temperature 98.0 F 97.9 F Pulse Rate 70 79 76 Respiratory Rate 18 18 Blood Pressure 104/57 L 108/63 Pulse Oximetry 95 94 L 04/09/18 00:00 04/09/18 03:29 04/09/18 04:00 Temperature 97.8 F Pulse Rate 65 71 62 Respiratory Rate 18 Blood Pressure 127/62 Pulse Oximetry 96 04/09/18 08:00 04/09/18 10:51 04/09/18 12:00 Temperature 97.1 F L 98.8 F Pulse Rate 80 73 Respiratory Rate 17 17 Blood Pressure 127/58 L 124/67 Pulse Oximetry 96 96 96 04/09/18 16:00 Temperature 97.9 F Pulse Rate 72 Respiratory Rate 16 Blood Pressure 109/59 L Pulse Oximetry 96 Intake & Output 04/08/18 04/09/18 04/09/18 18:59 06:59 18:59 Intake Total 360 / 360 360 / 360 Output Total 425 / 425 650 / 650 Balance -65 / -65 -290 / -290 Weight 94.8 kg Intake: Oral 360 / 360 360 / 360 Output: Urine 425 / 425 650 / 650 Other: Date of Last Bowel Movement 04/07/18 04/08/18 04/08/18 # Bowel Movements 1 Intake & Output 04/07/18 04/08/18 04/09/18 04/10/18 06:59 06:59 06:59 06:59 Intake Total 1140 / 1140 1840 / 1840 720 / 720 Output Total 350 / 350 310 / 310 1075 / 1075 Balance 790 / 790 1530 / 1530 -355 / -355 Weight 94.7 kg 94.8 kg 94.8 kg General: No acute distress, Other (Patient is sitting in the bedside chair; is at bedside) Respiratory: Non-labored respirations, BS equal, Coarse breath sounds Gastrointestinal: Positive bowel sounds, Non-distended, Non-tender Date of Last Bowel Movement: 04/08/18 Cardiovascular: Normal rate, Regular rhythm Skin: No rash Musculoskeletal: Tenderness (Lower extremity tenderness to palpation), Swelling (2+ lower extremity edema) Psychiatric: Cooperative, Appropriate mood & affect - Neurologic Orientation: oriented to: Self, Place (With cues), Time (With cues), Situation Neurologic: Pupils (PERRLA), Facial symmetry (Symmetric), Speech (Intelligible voice volume is significantly decreased) Motor: Right Upper Extremity (4+/5), Left Upper Extremity (4+/5), Right Lower Extremity (4-/5), Left Lower Extremity (4-/5) Sensory: Decreased in the lower extremities to light touch distal to the midcalf level Clonus: Negative Exam Comments: Sit to stand transfers so poor standing balance with knees flexed and trunk forward flexed; with a Rollator patient has bradykinesia, freezing episodes and balance is fair minus and worse with turning. Results - Labs CBC & Chem 7: 04/05/18 00:15 04/08/18 06:49 Labs: Laboratory Results - last 24 hr 04/05/18 11:42 Methylmalonic Acid 1.66 H Assessment and Plan (1) Impaired mobility and activities of daily living Status: Acute Code(s): Z74.09 - Other reduced mobility (2) History of cardiac pacemaker Status: Acute Code(s): Z95.0 - Presence of cardiac pacemaker (3) Hypertension Status: Acute Code(s): I10 - Essential (primary) hypertension (4) History of Parkinson's disease Status: Acute Code(s): Z86.69 - Personal history of other diseases of the nervous system and sense organs - Plan Assessment: 1. Possible stroke with slurred speech and decline in ability to transfer and ambulate 2. Parkinson's disease 3. Impaired mobility and ADLs due to above 4. Hypertension 5. Chronic pain 6. History of right total hip arthroplasty 7. Pacemaker in place 8. Orthostatic hypotension 9. Lower extremity edema Recommendations: 1. Patient is now mod assist for supine to sit transfers and min assist for sit to stand transfers. He is ambulating contact-guard to min assist with a 4 wheel walker 120 feet with significant gait impairments as described above. Continue to mobilize with focus on safety for gait and improving balance 2. Monitor for orthostatic hypotension as mobilized with adjustment of Sinemet and initiation of midodrine 3. Occupational Therapy is addressing ADLs and now minimal assistance for upper body dressing and moderate assistance for lower body dressing. Continue to advance independence to decrease caregiver burden. 4. Speech therapy has evaluated swallow and now tolerating mechanical soft diet with thin liquids. Cognitive evaluation requested 5. Patient will benefit from ongoing inpatient rehabilitation in case management has initiated referrals. [id number] review has been requested to patient's insurance carrier and is scheduled for 04/10/18 at 15:30 6. Will continue to follow while hospitalized and as appropriate at discharge
[2018-04-10] MEDS: clonazePAM 0.5 MG Tablet PO SCH ×3 (06:14→21:42)
[2018-04-10] MEDS: Carbidopa/Levodopa CR 50/200 MG Tablet PO SCH ×3 (09:14→17:56)
[2018-04-10] MEDS: Nystatin 100,000 UNITS/GM Powder 15 GM Bottle TOPICAL SCH ×5 (09:17→21:44)
[2018-04-10] MEDS: Sod Chloride 0.9% Inj 1,000 ML IV.CONT SCH (09:18)
--- NOTE | 2018-04-10 10:08 | P.PNNEU ---
Subjective Active Medications: Active Medications Apixaban (Eliquis) 5 mg PO BID [facility] Last Admin: 04/10/18 09:14 Dose: 5 mg Carbidopa/Levodopa (Sinemet Cr 50/200 Mg) 1 tab PO TID [facility] Last Admin: 04/10/18 09:14 Dose: 1 tab Clonazepam (Klonopin) 0.5 mg PO Q8HR [facility] Last Admin: 04/10/18 06:14 Dose: 0.5 mg Cyanocobalamin (Vitamin B12 Inj) 1,000 mcg SQ ONCE [facility] Last Admin: 04/06/18 19:37 Dose: 1,000 mcg Dextrose (D50w Vial) 50 ml IV.PUSH UNSCH PRN PRN Reason: PER HYPOGLYCEMIA PROTOCOL Glucagon (Glucagon Inj) 1 mg OTHER UNSCH PRN PRN Reason: for Hypoglycemia Protocol Sodium Chloride (Ns Inj) 1,000 mls @ 70 mls/hr IV.CONT .[id number] [facility] Last Admin: 04/10/18 09:18 Dose: Not Given Midodrine (Proamatine) 2.5 mg PO TID@0700,1200,1700 [facility] Last Admin: 04/10/18 09:15 Dose: 2.5 mg Miscellaneous (Pill Splitter) 1 each OTHER UNSCH [facility] Multivitamins (Theragran) 1 tab PO DAILY [facility] Last Admin: 04/10/18 09:14 Dose: 1 tab Nystatin (Mycostatin Powder) 1 applicatio TOPICAL QID [facility] Last Admin: 04/10/18 09:17 Dose: 1 applicatio Sodium Chloride (Ns Flush) 2 ml IV.FLUSH BID [facility] Last Admin: 04/10/18 09:17 Dose: 2 ml Sodium Chloride (Ns Flush) 2 ml IV.FLUSH PRN PRN PRN Reason: FLUSH AFTER USING IV ACCESS Torsemide (Demadex) 10 mg PO DAILY [facility] Last Admin: 04/10/18 09:14 Dose: 10 mg Allergies/Adverse Reactions: Allergies Allergy/AdvReac Type Severity Reaction Status Date / Time No Known Allergies Allergy Verified 04/04/18 23:53 Physical Exam Vital signs: Vital Signs 04/09/18 10:51 04/09/18 12:00 04/09/18 16:00 Temperature 98.8 F 97.9 F Pulse Rate 73 72 Respiratory Rate 17 16 Blood Pressure 124/67 109/59 L Pulse Oximetry 96 96 96 04/09/18 20:00 04/09/18 20:25 04/10/18 00:00 Temperature 97.4 F L Pulse Rate 73 69 70 Respiratory Rate 15 Blood Pressure 94/51 L Pulse Oximetry 96 04/10/18 00:50 04/10/18 04:00 04/10/18 04:35 Temperature 97.8 F 97.9 F Pulse Rate 74 69 71 Respiratory Rate 16 16 Blood Pressure 140/71 133/67 Pulse Oximetry 96 95 Intake & Output 04/09/18 04/10/18 04/10/18 18:59 06:59 18:59 Intake Total 500 / 500 500 / 500 Output Total 800 / 800 200 / 200 Balance -300 / -300 300 / 300 Weight 177.7 kg Intake: Oral 500 / 500 500 / 500 Output: Urine 800 / 800 200 / 200 Other: # Voids 1 Date of Last Bowel Movement 04/08/18 04/08/18 04/10/18 # Bowel Movements 0 Narrative: awake some smaller steps b4 sinemet dose but moving fairly well with walker - Urinary Catheter Management Straight Cath placed during this visit: yes, but has since been removed by the nurse Reason for continuing: Not indwelling catheter Insertion date: 04/05/18 Insertion time: 00:50 Removal date: 04/05/18 Removal time: 00:50 Review/Management - Review/Management Plan: imp b12 shots PT and ambulate on sinemet higher dose echo ef 45% la 41 some aflutter and i would agree with anticoag and pt to dw dr portillo tomorrow fu troponin check standing bp ----- 04/07/18 trop neg check standing bp dr portillo for anticoag fu echo ok to dc ow if standing bp ok to home or rehab 04/08/18 bp standing not done i lm for dr portillo ef 45% la 41 as above 04/09/18 bvery orthostatic i dw cards and midodrine ok so 2.5 started watch standing bp cards rec eliquis so med team plz start that today dc tramadol 04/10/18 looks better this am ok to dc bp standing a lot better i dw
--- NOTE | 2018-04-10 14:23 | P.PNCA ---
Subjective Interval history: Patient denies any chest pain, pressure, palpitations, dizziness, edema or shortness of breath. Patient is currently sitting up in the chair. Medications and Allergies Allergies Allergy/AdvReac Type Severity Reaction Status Date / Time No Known Allergies Allergy Verified 04/04/18 23:53 Home Medications Medication Instructions Recorded Confirmed Type buspirone 15 mg PO BID 04/05/18 04/05/18 History carbidopa-levodopa 15 mg PO TID 04/05/18 04/05/18 History carbidopa-levodopa 200 mg PO HS 04/05/18 04/05/18 History metoprolol tartrate 25 mg PO DAILY 04/05/18 04/05/18 History tramadol 50 mg PO Q4-6H PRN 04/05/18 04/05/18 History trazodone 50 mg PO HS 04/05/18 04/05/18 History Active Medications: Active Medications Apixaban (Eliquis) 5 mg PO BID [facility] Last Admin: 04/10/18 09:14 Dose: 5 mg Carbidopa/Levodopa (Sinemet Cr 50/200 Mg) 1 tab PO TID [facility] Last Admin: 04/10/18 12:16 Dose: 1 tab Clonazepam (Klonopin) 0.5 mg PO Q8HR [facility] Last Admin: 04/10/18 14:01 Dose: 0.5 mg Cyanocobalamin (Vitamin B12 Inj) 1,000 mcg SQ ONCE [facility] Last Admin: 04/06/18 19:37 Dose: 1,000 mcg Dextrose (D50w Vial) 50 ml IV.PUSH UNSCH PRN PRN Reason: PER HYPOGLYCEMIA PROTOCOL Glucagon (Glucagon Inj) 1 mg OTHER UNSCH PRN PRN Reason: for Hypoglycemia Protocol Sodium Chloride (Ns Inj) 1,000 mls @ 70 mls/hr IV.CONT .[id number] [facility] Last Admin: 04/10/18 09:18 Dose: Not Given Midodrine (Proamatine) 2.5 mg PO TID@0700,1200,1700 [facility] Last Admin: 04/10/18 12:21 Dose: 2.5 mg Miscellaneous (Pill Splitter) 1 each OTHER UNSCH [facility] Multivitamins (Theragran) 1 tab PO DAILY [facility] Last Admin: 04/10/18 09:14 Dose: 1 tab Nystatin (Mycostatin Powder) 1 applicatio TOPICAL QID [facility] Last Admin: 04/10/18 12:17 Dose: 1 applicatio Sodium Chloride (Ns Flush) 2 ml IV.FLUSH BID [facility] Last Admin: 04/10/18 09:17 Dose: 2 ml Sodium Chloride (Ns Flush) 2 ml IV.FLUSH PRN PRN PRN Reason: FLUSH AFTER USING IV ACCESS Torsemide (Demadex) 10 mg PO DAILY [facility] Last Admin: 04/10/18 09:14 Dose: 10 mg Physical Exam Vital signs: Vital Signs 04/09/18 16:00 04/09/18 20:00 04/09/18 20:25 Temperature 97.9 F 97.4 F L Pulse Rate 72 73 69 Respiratory Rate 16 15 Blood Pressure 109/59 L 94/51 L Pulse Oximetry 96 96 04/10/18 00:00 04/10/18 00:50 04/10/18 04:00 Temperature 97.8 F Pulse Rate 70 74 69 Respiratory Rate 16 Blood Pressure 140/71 Pulse Oximetry 96 04/10/18 04:35 04/10/18 08:00 Temperature 97.9 F 98.4 F Pulse Rate 71 74 Respiratory Rate 16 Blood Pressure 133/67 Pulse Oximetry 95 Intake & Output 04/09/18 04/10/18 04/10/18 18:59 06:59 18:59 Intake Total 500 / 500 500 / 500 Output Total 800 / 800 200 / 200 Balance -300 / -300 300 / 300 Weight 177.7 kg Intake: Oral 500 / 500 500 / 500 Output: Urine 800 / 800 200 / 200 Other: # Voids 1 Date of Last Bowel Movement 04/08/18 04/08/18 04/08/18 # Bowel Movements 0 - Constitutional no acute distress - Routine HEENT Exam Head: Present: normocephalic Eye: Present: PERRL ENT: Present: mucous membranes moist - Routine Neck Exam Present: full ROM - Routine Respiratory Exam Present: CTA bilaterally - Routine Cardiovascular Exam Present: S1, S2. Absent: murmur, gallop, rubs - Routine Abdominal Exam Present: normoactive bowel sounds - Routine Extremities Exam Present: edema, full ROM, pulses intact, normal capillary refill. Absent: cyanosis, clubbing - Routine Skin Exam Present: intact - Routine Neurological Exam Present: oriented X3 - Detailed Neurological Exam: Coma Scale Eye Opening: Spontaneous Verbal Response: Oriented Motor Response: Obey commands Marianela Coma Scale Total: 15 - Routine Psychiatric Exam Present: normal affect - Urinary Catheter Management Straight Cath placed during this visit: yes, but has since been removed by the nurse Reason for continuing: Not indwelling catheter Insertion date: 04/05/18 Insertion time: 00:50 Removal date: 04/05/18 Removal time: 00:50 Results 04/05/18 00:15 04/08/18 06:49 Intake and Output 04/09/18 04/10/18 04/10/18 22:59 06:59 14:59 Intake Total 500 / 500 500 / 500 Output Total 800 / 800 200 / 200 Balance -300 / -300 300 / 300 Intake: Oral 500 / 500 500 / 500 Output: Urine 800 / 800 200 / 200 Other: # Voids 1 Date of Last Bowel Movement 04/08/18 04/08/18 # Bowel Movements 0 Weight 177.7 kg Assessment and Plan - Assessment (1) Slurred speech Code(s): R47.81 - Slurred speech Status: Acute (2) History of cardiac pacemaker Code(s): Z95.0 - Presence of cardiac pacemaker Status: Acute (3) Fluid retention Code(s): R60.9 - Edema, unspecified Status: Acute (4) Hypertension Code(s): I10 - Essential (primary) hypertension Status: Acute (5) History of Parkinson's disease Code(s): Z86.69 - Personal history of other diseases of the nervous system and sense organs Status: Acute - Plan Patient was starting on midodrine for severe orthostatic hypotension. He has episodes of atrial tachycardia/flutter and was started on Eliquis for anticoagulation. We will continue with current cardiac treatment plan. Increase activity, PT. We will continue to monitor during his hospitalization and follow up in our office after discharge. Patient was seen and evaluated by Dr. Hurt who participated in care, management and decision making. - Attending Attestation Patient seen and examined. I reviewed and agree with the evaluation and plan as presented. Continue anticoagulation. Midodrine for severe orthostatic hypotension. Increase activity. Transfer to rehab as planned.
--- NOTE | 2018-04-10 21:47 | P.PN ---
Subjective Interval history: Follow up for possible stroke, parkinson's disease, Afib. Patient was seen in the AM. Sitting in his chair, no acute concerns. Waiting for a decision regarding placement. No acute concerns. No fever, chills. Physical Exam Vital signs: Vital Signs 04/10/18 00:00 04/10/18 00:50 04/10/18 04:00 Temperature 97.8 F Pulse Rate 70 74 69 Respiratory Rate 16 Blood Pressure 140/71 Pulse Oximetry 96 04/10/18 04:35 04/10/18 08:00 04/10/18 16:41 Temperature 97.9 F 98.4 F 97.6 F Pulse Rate 71 74 71 Respiratory Rate 16 18 Blood Pressure 133/67 Pulse Oximetry 95 96 04/10/18 20:15 Temperature 97.9 F Pulse Rate Respiratory Rate 16 Blood Pressure Pulse Oximetry 95 Intake & Output 04/10/18 04/10/18 04/11/18 06:59 18:59 06:59 Intake Total 500 / 500 480 / 480 Output Total 200 / 200 2 / 2 Balance 300 / 300 478 / 478 Weight 177.7 kg Intake: Oral 500 / 500 480 / 480 Output: Urine 200 / 200 Stool 2 / 2 Other: # Voids 1 Date of Last Bowel Movement 04/08/18 04/10/18 # Bowel Movements 1 Narrative: GENERAL: Resting in bed, NAD. SKIN: Warm and dry. HEAD: Normocephalic. EYES: No scleral icterus. No injection or drainage. NECK: Supple, trachea midline. No JVD or lymphadenopathy. CARDIOVASCULAR: Regular rate and rhythm without murmurs, gallops, or rubs. RESPIRATORY: Breath sounds equal bilaterally. No accessory muscle use. GASTROINTESTINAL: Abdomen soft, non-tender, nondistended. MUSCULOSKELETAL: No cyanosis, or edema. BACK: Nontender without obvious deformity. No CVA tenderness. - Urinary Catheter Management Straight Cath placed during this visit: yes, but has since been removed by the nurse Reason for continuing: Not indwelling catheter Insertion date: 04/05/18 Insertion time: 00:50 Removal date: 04/05/18 Removal time: 00:50 Results - Labs CBC & Chem 7: 04/05/18 00:15 04/08/18 06:49 Assessment and Plan - Plan Mr. Morrissey is a pleasant 87-year-old male with a history of hypertension, Parkinson's disease, pacemaker placement who presented to the emergency department on 04/04/2018 due to slurred speech noted by his . Neurology was consulted. Probable acute stroke -CT head shows no acute abnormalities. -Neck and head CTA unremarkable. -Echocardiogram shows ejection fraction 40-45%. -Patient is currently on aspirin 81 mg p.o. daily. -Pacemaker device interrogation - shows Atrial flutter back in September and January 2018. Paroxysmal Atrial flutter - [id number] score 3 (age, HTN) - Cardiology recommends starting anticoagulation. - Will continue Apixaban 5mg BID. Hypertension Hx of pacemaker placement Chronic congestive heart failure - systolic. -[employer] pacemaker placed by Dr. Hurt -Cardiology has evaluated patient. Torsemide 10mg Qday started. Hx of Parkinson's disease Orthostatic hypotension - Continue Midodrine low dose. - Continue Sinemet Right hip pain - Remote hx of hip surgery, revision. X-ray unremarkable for any acute findings. Full code. Apixaban If Trevizo placement denied, patient may need to go to SNF.
[2018-04-11] MEDS ORDERED: Acetaminophen 325 MG Tablet PO PRN (00:32)
[2018-04-11 00:48] VITALS: RESP 16
[2018-04-11] MEDS: Sod Chloride 0.9% Inj 1,000 ML IV.CONT SCH ×2 (03:08→13:29)
[2018-04-11] MEDS: clonazePAM 0.5 MG Tablet PO SCH ×2 (06:28→13:05)
[2018-04-11] MEDS: Carbidopa/Levodopa CR 50/200 MG Tablet PO SCH ×2 (09:30→13:05)
[2018-04-11] MEDS: Nystatin 100,000 UNITS/GM Powder 15 GM Bottle TOPICAL SCH ×2 (09:30→13:28)
--- NOTE | 2018-04-11 12:12 | P.DS ---
Date of admission: 04/05/18 01:25 Primary care physician: Srini Spain Attending physician on discharge: Yi Grace Anticipated date of discharge: 04/11/18 Brief History from admission: Mr. Morrissey is a pleasant 87-year-old male with a history of Parkinson's disease, hypertension, pacemaker placement who was brought to the hospital due to slurred speech. Patient cannot provide much history at the time of this interview. Per chart review, patient's noticed changes in patient's speech changes around 6 PM on 04/04/2018. He also had difficulty walking because of right-sided groin area pain. Patient did not have any chest pain, shortness of breath, fever or chills. No changes in bowel or bladder habits. Past medical history: Hypertension, Parkinson's disease, pacemaker placement Past surgical history: Patient could not tell me any major surgeries in the past. Social history: He denies using tobacco or alcohol. Family history: Father had stroke. Patient update on day of discharge: Patient worked with physical therapy. He is doing well. No acute concerns. is at bedside. Patient has been accepted at [facility]. He will be going to [facility] today. DS: Summary Hospital Course: Mr. Morrissey is a pleasant 87-year-old male with a history of hypertension, Parkinson's disease, pacemaker placement who presented to the emergency department on 04/04/2018 due to slurred speech noted by his . Neurology was consulted. Probable acute stroke -CT head shows no acute abnormalities. -Neck and head CTA unremarkable. -Echocardiogram shows ejection fraction 40-45%. -Pacemaker device interrogation - shows Atrial flutter back in September and January 2018. Paroxysmal Atrial flutter - [id number] score 3 (age, HTN) - Cardiology recommends starting anticoagulation. - Will continue Apixaban 5mg BID. Hypertension Hx of pacemaker placement Chronic congestive heart failure - systolic. -[employer] pacemaker placed by Dr. Hurt -Cardiology has evaluated patient. Torsemide 10mg Qday started. Hx of Parkinson's disease Orthostatic hypotension - Continue Midodrine low dose. - Continue Sinemet Right hip pain - Remote hx of hip surgery, revision. X-ray unremarkable for any acute findings. Full code. Apixaban Discharge medications: Apixaban 5 mg p.o. twice daily Carbidopa levodopa 50-200 mg 1 tablet p.o. 3 times daily Clonazepam 0.5 mg p.o. every 8 hours Midodrine 2.5 mg p.o. 3 times daily at 7, 12, 5 Multivitamin with folic acid Nystatin powder Torsemide 10 mg p.o. daily - Time Spent with Patient Total time spent providing and/or coordinating discharge services: Less than 30 minutes - Quality: Stroke Last date observed well: 04/04/18 Last time observed well: 18:30 - Quality: VTE Deep Vein Thrombosis/Pulmonary Embolism Present on Admission: No Exam Vital signs: Vital Signs 04/10/18 16:41 04/10/18 20:00 04/10/18 20:15 Temperature 97.6 F 97.9 F Pulse Rate 71 71 Respiratory Rate 18 16 Blood Pressure Pulse Oximetry 96 95 04/10/18 22:11 04/11/18 00:00 04/11/18 00:30 Temperature 97.4 F L 97.5 F L Pulse Rate 70 70 71 Respiratory Rate 17 16 Blood Pressure 115/56 L 121/58 L Pulse Oximetry 96 96 04/11/18 04:00 04/11/18 04:20 04/11/18 08:00 Temperature 97.3 F L 98.3 F Pulse Rate 74 75 70 Respiratory Rate 16 16 Blood Pressure 130/61 129/65 Pulse Oximetry 95 96 Intake & Output 04/10/18 04/11/18 04/11/18 18:59 06:59 18:59 Intake Total 480 / 480 360 / 360 Output Total 2 / 2 425 / 425 Balance 478 / 478 -65 / -65 Weight 177.8 kg Intake: Oral 480 / 480 360 / 360 Output: Urine 425 / 425 Stool 2 / 2 Other: Date of Last Bowel Movement 04/10/18 04/10/18 # Bowel Movements 1 Narrative: GENERAL: Resting in bed, NAD. SKIN: Warm and dry. HEAD: Normocephalic. EYES: No scleral icterus. No injection or drainage. NECK: Supple, trachea midline. No JVD or lymphadenopathy. CARDIOVASCULAR: Regular rate and rhythm without murmurs, gallops, or rubs. RESPIRATORY: Breath sounds equal bilaterally. No accessory muscle use. GASTROINTESTINAL: Abdomen soft, non-tender, nondistended. MUSCULOSKELETAL: No cyanosis, or edema. BACK: Nontender without obvious deformity. No CVA tenderness. Results Procedures completed during hospitalization: Echo 04/05/2018 The left ventricular systolic function is moderately reduced with an estimated ejection fraction in the range of 40-45%. Poor image quality. In some views EF appears normal. Wall thickness is normal. Normal left ventricular size. The left atrial size is mildly dilated. Mild aortic valve regurgitation. There is mild to moderate tricuspid valve regurgitation. The estimated pulmonary arterial pressure is 33 mmHg. - Impressions ITS Impressions Chest X-Ray 04/05/18 00:06 CONCLUSION: Interstitial prominence right upper lung and left lower lung may represent developing infiltrate. Head CT 04/05/18 00:06 CONCLUSION: 1. No acute findings in the brain. 2. Moderate severity atrophy. The report was called to Dr. Samuel at 12:29 AM. Head CTA 04/05/18 00:06 CONCLUSION: 1. Negative exam. No evidence of vessel truncation. Neck CTA 04/05/18 00:06 CONCLUSION: 1. Negative exam. No significant stenosis seen. CT CAD 04/05/18 00:15 CONCLUSION: Physiological brain perfusion parameters with RAPID analysis as above. The decision for consideration of therapy is multi factorial and multi disciplinary relying on subjective and objective clinical data. This data is not construed or intended to be the sole determinant of treatment eligibility. Hip X-Ray 04/06/18 00:00 CONCLUSION: Right hip arthroplasty. No fracture or complication Discharge Plan - Discharge Disposition Patient Disposition: [facility] Inpatient - Discharge Condition Condition: Good - Discharge Order Discharge Orders: Discharge Order (Routine); Ordered 04/11/18 Ordered By: Yi Grace - Discharge Details Anticipated Discharge Date: 04/11/18 - Physicians Team Attending Provider: Yi Grace Other Providers: Jonah Sultana MD ; Chica Hurt MD ; [facility] ; Festus Munoz MD ; [facility],[place]
[2018-04-11 12:55] VITALS: BP 112/60; PULSE 73; TEMP 98.1; O2SAT 97
--- NOTE | 2018-04-11 15:09 | P.PNCA ---
Subjective Interval history: Patient denies any CP, pressure, palpitations, dizziness, edema or SOB. Medications and Allergies Allergies Allergy/AdvReac Type Severity Reaction Status Date / Time No Known Allergies Allergy Verified 04/04/18 23:53 Active Medications: Active Medications Acetaminophen (Tylenol) 650 mg PO Q4H PRN PRN Reason: pain 1-10 Last Admin: 04/11/18 00:37 Dose: 650 mg Apixaban (Eliquis) 5 mg PO BID [facility] Last Admin: 04/11/18 09:30 Dose: 5 mg Carbidopa/Levodopa (Sinemet Cr 50/200 Mg) 1 tab PO TID [facility] Last Admin: 04/11/18 13:05 Dose: 1 tab Clonazepam (Klonopin) 0.5 mg PO Q8HR [facility] Last Admin: 04/11/18 13:05 Dose: 0.5 mg Cyanocobalamin (Vitamin B12 Inj) 1,000 mcg SQ ONCE [facility] Last Admin: 04/06/18 19:37 Dose: 1,000 mcg Dextrose (D50w Vial) 50 ml IV.PUSH UNSCH PRN PRN Reason: PER HYPOGLYCEMIA PROTOCOL Glucagon (Glucagon Inj) 1 mg OTHER UNSCH PRN PRN Reason: for Hypoglycemia Protocol Sodium Chloride (Ns Inj) 1,000 mls @ 70 mls/hr IV.CONT .[id number] [facility] Last Admin: 04/11/18 13:29 Dose: Not Given Midodrine (Proamatine) 2.5 mg PO TID@0700,1200,1700 [facility] Last Admin: 04/11/18 13:05 Dose: 2.5 mg Miscellaneous (Pill Splitter) 1 each OTHER UNSCH [facility] Multivitamins (Theragran) 1 tab PO DAILY [facility] Last Admin: 04/11/18 09:30 Dose: 1 tab Nystatin (Mycostatin Powder) 1 applicatio TOPICAL QID [facility] Last Admin: 04/11/18 13:28 Dose: 1 applicatio Sodium Chloride (Ns Flush) 2 ml IV.FLUSH BID [facility] Last Admin: 04/11/18 09:30 Dose: 2 ml Sodium Chloride (Ns Flush) 2 ml IV.FLUSH PRN PRN PRN Reason: FLUSH AFTER USING IV ACCESS Torsemide (Demadex) 10 mg PO DAILY [facility] Last Admin: 04/11/18 09:29 Dose: 10 mg Physical Exam Vital signs: Vital Signs 11/01/18 16:41 04/10/18 20:00 04/10/18 20:15 Temperature 97.6 F 97.9 F Pulse Rate 71 71 Respiratory Rate 18 16 Blood Pressure Pulse Oximetry 96 95 04/10/18 22:11 04/11/18 00:00 04/11/18 00:30 Temperature 97.4 F L 97.5 F L Pulse Rate 70 70 71 Respiratory Rate 17 16 Blood Pressure 115/56 L 121/58 L Pulse Oximetry 96 96 04/11/18 04:00 04/11/18 04:20 04/11/18 08:00 Temperature 97.3 F L 98.3 F Pulse Rate 74 75 69 Respiratory Rate 16 16 Blood Pressure 130/61 129/65 Pulse Oximetry 95 96 04/11/18 12:00 Temperature 98.1 F Pulse Rate 73 Respiratory Rate 16 Blood Pressure 112/60 Pulse Oximetry 97 Intake & Output 04/10/18 04/11/18 04/11/18 18:59 06:59 18:59 Intake Total 480 / 480 360 / 360 Output Total 2 / 2 425 / 425 Balance 478 / 478 -65 / -65 Weight 177.8 kg Intake: Oral 480 / 480 360 / 360 Output: Urine 425 / 425 Stool 2 / 2 Other: Date of Last Bowel Movement 04/10/18 04/10/18 # Bowel Movements 1 - Constitutional no acute distress - Routine HEENT Exam Head: Present: normocephalic Eye: Present: PERRL ENT: Present: mucous membranes moist - Routine Neck Exam Present: full ROM - Routine Respiratory Exam Present: CTA bilaterally - Routine Cardiovascular Exam Present: S1, S2. Absent: murmur, gallop, rubs - Routine Abdominal Exam Present: normoactive bowel sounds - Routine Extremities Exam Present: full ROM, pulses intact, normal capillary refill. Absent: cyanosis, clubbing, edema - Routine Skin Exam Present: intact - Routine Neurological Exam Present: oriented X3 - Detailed Neurological Exam: Coma Scale Eye Opening: Spontaneous Verbal Response: Oriented Motor Response: Obey commands Marianela Coma Scale Total: 15 - Routine Psychiatric Exam Present: normal affect - Urinary Catheter Management Straight Cath placed during this visit: yes, but has since been removed by the nurse Reason for continuing: Not indwelling catheter Insertion date: 04/05/18 Insertion time: 00:50 Removal date: 04/05/18 Removal time: 00:50 Results 04/05/18 00:15 04/08/18 06:49 Intake and Output 04/11/18 04/11/18 04/11/18 06:59 14:59 22:59 Intake Total 360 / 360 Output Total 425 / 425 Balance -65 / -65 Intake: Oral 360 / 360 Output: Urine 425 / 425 Other: Weight 177.8 kg Assessment and Plan - Assessment (1) Slurred speech Code(s): R47.81 - Slurred speech Status: Acute (2) History of cardiac pacemaker Code(s): Z95.0 - Presence of cardiac pacemaker Status: Acute (3) Fluid retention Code(s): R60.9 - Edema, unspecified Status: Acute (4) Hypertension Code(s): I10 - Essential (primary) hypertension Status: Chronic (5) History of Parkinson's disease Code(s): Z86.69 - Personal history of other diseases of the nervous system and sense organs Status: Chronic - Plan No new cardiac issues at this time, we will continue to monitor. BP remains stable. Patient is stable from cardiac standpoint, continue anticoagulation. Transfer to rehab today as planned. Patient was seen and evaluated by Dr. Hurt who participated in care, management and decision making. - Attending Attestation Patient seen and examined. I reviewed and agree with the evaluation and plan as presented. No new cardiac issues. Transfer to rehab as planned. (4) Hypertension Qualifiers: Hypertension type: essential hypertension Qualified Code(s): I10 - Essential (primary) hypertension
== END 2018-04-11 15:20 ==
LOC: NEPC 23:37 → NEDA 04-05 01:25 → N06 04-05 02:23
PROVIDERS: ADMIT Hospitalist; ATTEND Hospitalist